=== PATIENT | female | born 1935 | race African-American/Black ===

== ENCOUNTER → 2018-09-23 | Emergency (ER) | payer MEDICARE, OTHER ==
[~2018-09-23] VITALS: Ht 160 cm; Wt 69.0 kg
[~2018-09-23] MED LIST: ADULT LOW DOSE81 MG; ANTIFUNGAL30 GM TP; BACTROBAN CREAM30 G1 TOP; CARVEDILOL; CARVEDILOL6.25 MG; FAMOTIDINE 20 M20 MG; GABAPENTIN100 MG; GLUCOPHAGE500 MG; GLUCOTROL5 MG; HYDROCODONE-AP1 EAC6 PO; KEFLEX500 MG PO; LATANOPROST 0.2.5 ML; LIPITOR40 MG; LISINOPRIL10 MG; LOMOTIL TABLET1 EACH; NITROGLYCERIN0.4 MG; NORCO 5-325 TA1 EACH PO; PLAVIX 75 MG TA75 M1; TRENTAL; ZOLOFT 50 MG TA50 MG
[2018-09-24 00:45] VITALS: BP 176/43
== END ==
LOC: M.ERS 23:02
DX: R04.0 Epistaxis (principal); I10 Essential (primary) hypertension; E11.40 Type 2 diabetes mellitus with diabetic neuropathy, unspecified; E78.00 Pure hypercholesterolemia, unspecified

== ENCOUNTER 2020-02-06 16:30 | Inpatient (IN) | payer MEDICARE, OTHER ==
[~2020-02-06] VITALS: Ht 160 cm; Wt 65.8 kg
[~2020-02-06 16:30] MED LIST changes: -ADULT LOW DOSE81 MG; +ADULT LOW DOSE81 MG PO; -GABAPENTIN100 MG; +GABAPENTIN100 MG PO; -LIPITOR40 MG; +LIPITOR40 MG PO; -ZOLOFT 50 MG TA50 MG; +ZOLOFT 50 MG TA50 MG PO
[2020-02-06 17:36] LABS: URINE BILIRUBIN NEGATIVE (Negative); URINE BLOOD TRACE (Negative); URINE CLARITY CLEAR; URINE COLOR YELLOW; URINE GLUCOSE-RANDOM TRACE (Negative); URINE KETONES NEGATIVE (Negative); URINE LEUKOCYTES-REFLEX NEGATIVE (Negative); URINE NITRITE-REFLEX NEGATIVE (Negative); URINE PROTEIN 2+ (Negative); URINE SPECIFIC GRAVITY 1.015 (1.005-1.030); URINE UROBILINOGEN 0.2 E.U./dl (0.2-1.0)
[2020-02-06 17:43] LABS: BACTERIA-REFLEX None Seen /HPF (None Seen); CASTS None Seen /LPF (None Seen); CRYSTALS None Seen /LPF (None Seen); MUCUS 0-3 Light strn/LPF (None Seen); SQUAMOUS 4-10 Moderate /LPF (0-3); URINE RBC 3-10 Few /HPF (0-2); URINE WBC-REFLEX None Seen /HPF (0-5)
[2020-02-06 17:53] LABS: ABSOLUTE EOSINOPHILS 0.1 thou/uL (0.0-0.7); ABSOLUTE MONOCYTES 0.3 thou/uL (0.0-1.2); ABSOLUTE NEUTROPHILS 3.5 thou/uL (1.6-8.1); BASOPHILS 0.5 %; EOSINOPHILS 1.2 %; HEMATOCRIT 26.1 % (37.0-47.0); HEMOGLOBIN 8.7 gm/dL (12.0-15.0); LYMPHOCYTES 19.9 %; MCH 31.6 pg (26.0-34.0); MCHC 33.3 g/dL (28.0-37.0); MONOCYTES 6.6 %; MPV 8.5 fl. (7.2-11.1); NUCLEATED RBCS 0 /100WBC; PLATELET COUNT* 105 thou/uL (150-400); POLYS 71.8 %; RBC 2.75 mil/uL (4.20-5.00); RDW-CV 13.7 % (10.5-14.5); WBC 4.9 thou/uL (4.0-11.0)
[2020-02-06 18:01] VITALS: BP 137/58
[2020-02-06 18:08] LABS: APTT 27.3 Seconds (25.0-31.3); INR 1.3; PROTIME 13.2 Seconds (9.20-11.50)
[2020-02-06 18:16] LABS: ALBUMIN 2.1 g/dL (3.4-5.0); CK-MB MASS 1.3 ng/mL (<0.5-3.6); CREATININE 1.3 mg/dL (0.6-1.3); MAGNESIUM 1.3 mg/dL (1.8-2.4); TOTAL BILIRUBIN 0.3 mg/dL (<0.1-1.0); TOTAL PROTEIN 4.2 g/dL (6.4-8.2)
[2020-02-06 18:18] LABS: CALCIUM 5.6 mg/dL (8.5-10.1); POTASSIUM 6.5 mmol/L (3.5-5.1)
[2020-02-06 20:01] VITALS: BP 156/83
[2020-02-06 21:00] VITALS: BP 206/77
[2020-02-06 21:15] LABS: CREATININE 1.4 mg/dL (0.6-1.3)
[2020-02-06 21:16] LABS: CALCIUM 7.8 mg/dL (8.5-10.1)
[2020-02-06 21:19] LABS: POTASSIUM 6.3 mmol/L (3.5-5.1)
[2020-02-06 21:19] LABS: BE -7.2 mmol/L (-2 to +3); PO2 VENOUS 56.7 mmHg (35.0-45.0)
[2020-02-06 21:31] VITALS: BP 218/74
[2020-02-06 22:01] VITALS: BP 201/61
[2020-02-06 23:01] VITALS: BP 181/52
[2020-02-07] VITALS (74 sets, daily range): BP systolic 106–223; BP diastolic 36–105
[2020-02-07 01:26] LABS: HEMATOCRIT 39.5 % (37.0-47.0); MCH 31.4 pg (26.0-34.0); MPV 8.8 fl. (7.2-11.1); RBC 4.16 mil/uL (4.20-5.00); RDW-CV 13.7 % (10.5-14.5); WBC 9.6 thou/uL (4.0-11.0)
[2020-02-07 01:27] LABS: HEMOGLOBIN 13.1 gm/dL (12.0-15.0)
[2020-02-07 01:33] LABS: CALCIUM 7.7 mg/dL (8.5-10.1); CREATININE 1.4 mg/dL (0.6-1.3)
[2020-02-07 01:42] LABS: ALBUMIN 3.1 g/dL (3.4-5.0); MAGNESIUM 1.6 mg/dL (1.8-2.4); TOTAL BILIRUBIN 0.3 mg/dL (<0.1-1.0); TOTAL PROTEIN 7.1 g/dL (6.4-8.2); TROPONIN-I LEVEL 0.33 ng/mL (<0.06)
[2020-02-07 01:47] LABS: POTASSIUM 6.6 mmol/L (3.5-5.1)
--- NOTE | 2020-02-07 05:08 | NUR ---
PT WENT FROM BEING HYPOTHERMIC TO HYPERTHERMIC THROUGH THE NIGHT. STARTED ON HEPARIN GTT AND SEDATED ON PROPOFOL AND VERSED. PUPILS REACTIVE. PT SEEMS TO BE POSTURING EVERY 10-15 SECONDS FOR A FEW SECONDS AND RELAXES EXTREMITIES RIGHT AFTER. VENT SETTINGS UNCHANGED. PACER IN PLACE AND WORKING. PT HYPERTENSIVE THROUGH THE NIGHT, TREATMENT IN PLACE. OTHERWISE UNEVENTFUL NIGHT. Q2 TURNS FOR SKIN INTEGRITY. WILL CONTINUE MONITORING.
[2020-02-07 07:34] LABS: CALCIUM 7.8 mg/dL (8.5-10.1); CREATININE 1.5 mg/dL (0.6-1.3)
[2020-02-07 07:39] LABS: POTASSIUM 5.3 mmol/L (3.5-5.1)
[2020-02-07 07:50] LABS: ALBUMIN 3.3 g/dL (3.4-5.0); TOTAL BILIRUBIN 0.3 mg/dL (<0.1-1.0); TOTAL PROTEIN 6.5 g/dL (6.4-8.2)
[2020-02-07 07:52] LABS: HEMATOCRIT 36.9 % (37.0-47.0); HEMOGLOBIN 12.4 gm/dL (12.0-15.0); MCH 31.5 pg (26.0-34.0); MCHC 33.6 g/dL (28.0-37.0); MCV 93.7 fL (80.0-100.0); MPV 9.4 fl. (7.2-11.1); RBC 3.94 mil/uL (4.20-5.00); RDW-CV 13.8 % (10.5-14.5)
[2020-02-07 07:57] LABS: BE -5.6 mmol/L (-2 to +3); PCO2 VENOUS 58.1 mmHg (41.0-51.0); PO2 VENOUS 131.8 mmHg (35.0-45.0)
[2020-02-07 14:30] LABS: CALCIUM 7.4 mg/dL (8.5-10.1); CREATININE 1.1 mg/dL (0.6-1.3)
--- NOTE | 2020-02-07 18:57 | NUR ---
PT HAD CENTRAL LINE AND ART LINE PLACED TODAY RECEIVED CONSENT TOLERATED WELL
[2020-02-07 22:03] LABS: BE 2.3 mmol/L (-2 to +3); PCO2 36.1 mmHg (35.0-45.0); pH 7.472 (7.340-7.450)
[2020-02-07 22:05] LABS: PO2 173.9 mmHg (75.0-100.0)
[2020-02-08] VITALS (67 sets, daily range): BP systolic 97–217; BP diastolic 35–89
[2020-02-08 05:33] LABS: BE -0.9 mmol/L (-2 to +3); PCO2 32.8 mmHg (35.0-45.0); pH 7.451 (7.340-7.450)
[2020-02-08 05:34] LABS: HEMATOCRIT 32.9 % (37.0-47.0); HEMOGLOBIN 11.4 gm/dL (12.0-15.0); MCH 31.8 pg (26.0-34.0); MCHC 34.6 g/dL (28.0-37.0); MCV 91.7 fL (80.0-100.0); MPV 8.7 fl. (7.2-11.1); RBC 3.59 mil/uL (4.20-5.00); RDW-CV 13.8 % (10.5-14.5); WBC 8.6 thou/uL (4.0-11.0)
[2020-02-08 05:51] LABS: PO2 174.4 mmHg (75.0-100.0)
[2020-02-08 05:57] LABS: ALBUMIN 2.8 g/dL (3.4-5.0); CALCIUM 7.7 mg/dL (8.5-10.1); MAGNESIUM 1.2 mg/dL (1.8-2.4); POTASSIUM 3.3 mmol/L (3.5-5.1); TOTAL BILIRUBIN 0.4 mg/dL (<0.1-1.0); TOTAL PROTEIN 6.6 g/dL (6.4-8.2)
--- NOTE | 2020-02-08 08:08 | CON ---
[address] [address] CONSULTATION Name: DELFINO BROWN Room: [address] IN M.R.#: [id number] Admission: 02/06/20 Attend Phys: Maximo Maldonado MD Discharge: Date of : 37 Report #: [id number] THIS REPORT FOR: //name// cc: COURTNEY Bah family physician/PCP COURTNEY - Niurka family physician/PCP ~ THIS REPORT FOR: //name// CC: COURTNEY physician/PCP Maximo Maldonado DATE OF SERVICE: 02/07/2020 REASON FOR CONSULTATION: Obtained by Dr. Maldonado for acute kidney injury and hyperkalemia. HISTORY OF PRESENT ILLNESS: The patient is an 84-year-old female patient who was admitted to the hospital last night. She is seen in intensive care unit. She is intubated and sedated. No history is available from the patient. 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 EMS was called. Apparently, the patient was found to have very feeble pulses versus bradycardia. CPR was initiated, do not done for too long as the patient apparently had some apparent response after that. There has been no reported seizure-like activity. The patient required an oropharyngeal airway management on the way to the hospital and was subsequently intubated for airway protection given her low GCS. She required emergent transvenous pacemaker placement. Presently, she is being paced off and on, but for the rest of the rhythm, she does appear to have a normal sinus rhythm. She is sedated. Her blood pressure was high initially, but has subsequently been dropping all night. She was on propofol and Versed both of which have been backed off. She is only requiring 50% FiO2. She has made 1.3 liters of urine overnight. PAST MEDICAL HISTORY: Has been obtained only by review of the chart, there is mention of a complete heart block in the past. There is a mention of diabetes, hypertension, coronary artery disease with history of acute [place] and coronary artery bypass surgery in the past, history of neuropathy and dyslipidemia. PERSONAL, SOCIAL AND FAMILY HISTORY: Unavailable from the patient. History mentions the patient is a former smoker. HOME MEDICATIONS: From records, Lipitor, famotidine, gabapentin, lisinopril, sertraline, [place] [address] CONSULTATION Name: DELFINO BROWN Room: [address] IN [facility]#: [id number] Admission: 02/06/20 Attend Phys: Maximo Maldonado MD Discharge: Date of : 36 Report #: [id number] REVIEW OF SYSTEMS: Unobtainable from the patient. The nurses tell me she has been doing some invariable posturing of her arms every now and then. She is currently sedated, so mental status cannot be assessed appropriately. PHYSICAL EXAMINATION: VITAL SIGNS: She is intubated and sedated. She is on 50% FiO2. There is an ET tube in place. LUNGS: Diminished bilaterally. HEART: S1 and S2. ABDOMEN: Soft. EXTREMITIES: Show no edema. SKIN: Warm and dry. I do not see any obvious ulcers or infections on the skin to my visible exam. IMAGING STUDIES: Reviewed. Chest x-ray showed mild cardiomegaly, no evidence of infiltrate or fluid overload. CT of the head did not show any acute intracranial abnormalities. LABORATORY STUDIES: White count on admission was 4.9, hemoglobin 8.7, and platelets 105. Metabolic panel on admission, sodium 142, potassium 6.5, bicarbonate 16, BUN 19, and creatinine 1.3. AST 485, ALT 354. CK 93, CK-MB 1.3, and albumin 2.1. Potassium kept rising over the night with a potassium of 6.6 again this morning. AST and ALT continue to rise on most recent blood test from this morning. Overnight, she was given Veltassa and was given a bicarbonate drip. This morning, her labs show sodium is 143, potassium is 5.3, chloride 109, bicarbonate 25, BUN is 17, creatinine is 1.5, calcium 7.8, and glucose is 121. AST and ALT are pending. Urinalysis shows 2+ protein, trace blood with few rbc's 3-10 and squamous epithelial cells. ASSESSMENT: 1. Nonoliguric acute kidney injury, unclear what the patient's baseline creatinine. Admission creatinine was 1.3. Creatinine last checked in the system here in 2005 was 1.1. 2. Episode of unresponsiveness with complete heart block on admission and hyperkalemia. 3. The patient is presently intubated for airway protection because of low GCS. 4. Complete heart block, has a transvenous pacer in place. I am noticing that she is not requiring pacing regularly, which could be because of the correction of the hyperkalemia. 5. Metabolic acidosis, predominantly non-anion gap improving with bicarbonate administration. 6. Mild lactic acidosis. 7. History of diabetes. 8. History of coronary artery disease, status post coronary artery bypass graft. 9. [place] [address] CONSULTATION Name: DELFINO BROWN Room: [address] IN [facility]#: [id number] Admission: 02/06/20 Attend Phys: Maximo Maldonado MD Discharge: Date of : 36 Report #: [id number] PLAN: 1. Nonoliguric acute kidney injury, slow rise in the creatinine as anticipated after a recent of unresponsiveness and possibly cardiovascular compromise. 2. Her blood pressure is stable now. 3. She is making decent amount of urine. 4. Her potassium is improving. I will continue D5 half NS with 50 mEq of bicarbonate at 125 mL an hour. 5. Metabolic acidosis has improved. 6. Marked hypoalbuminemia. 7. Transaminitis, possibly from the hemodynamic compromise because of the episode of unresponsiveness and complete heart block, anticipate improvement with the volume resuscitation. 8. We will follow along closely. No other specific recommendations at this moment. 9. Management of respiratory status and altered mental status as per primary and pulmonary team service recommendations. 10. The patient is critically sick and was seen in the intensive care unit. I spent 40 minutes with the patient, reviewing the chart, reviewing records, examining the patient, discussion with nursing staff and documentation. <ELECTRONICALLY SIGNED> By: Mickey Wu MD 02/08/20 0808 0746 [id number] Wu MD /nt
--- NOTE | 2020-02-08 13:57 | EKG ---
[place] [address] ELECTROCARDIOGRAM REPORT Name: DELFINO BROWN Room: [address] ADM IN .R.#: [id number] Admission: 02/06/20 Attend Phys: Maximo Maldonado, Discharge: Date of : 37 Date of Service: 02/06/20 1628 Report #: [id number] THIS REPORT FOR: //name// [facility] ED Test Date: 2020-02-06 Test Time: 16:28:53 Pat Name: DELFINO BROWN Department: Room: [facility] Gender: F [employer] In[employer] Servicer: : 1935 Requested By: Tom Edward Order Number: [id number] MD: Sudhir Rossi Measurements Intervals [place] Rate: 18 P: -81 TN: 128 QRS: 103 QRSD: 127 T: QT: 606 QTc: 332 Interpretive Statements Complete heart block with ventricular escape No previous ECG available for comparison Electronically Signed On 02-08-2020 13:57:14 CDT by Sudhir Rossi [email or web address] <ELECTRONICALLY SIGNED> By: Sudhir Rossi MD, [facility] 02/08/20 1357 1628 1628 Sudhir Rossi MD, [facility] /EPI
--- NOTE | 2020-02-08 18:42 | NUR ---
pt progressed toward goals temp pacemaker taken out per dr tran still intubated and sedated possible weaning trial tomorrow per blayne blood pressure still htn but after increasing dosage of medication b/p is more therapeutic spouse at bedside throughout shift
[2020-02-08 22:06] LABS: HEPATITIS B SURFACE AG Negative (Negative)
[2020-02-09] VITALS (86 sets, daily range): BP systolic 102–175; BP diastolic 37–85
[2020-02-09 05:09] LABS: HEMATOCRIT 27.9 % (37.0-47.0); HEMOGLOBIN 9.5 gm/dL (12.0-15.0); MCH 31.4 pg (26.0-34.0); MCHC 33.9 g/dL (28.0-37.0); MCV 92.5 fL (80.0-100.0); MPV 8.6 fl. (7.2-11.1); RBC 3.02 mil/uL (4.20-5.00); RDW-CV 13.7 % (10.5-14.5); WBC 7.5 thou/uL (4.0-11.0)
[2020-02-09 05:56] LABS: CALCIUM 7.5 mg/dL (8.5-10.1); CREATININE 0.9 mg/dL (0.6-1.3); MAGNESIUM 1.4 mg/dL (1.8-2.4)
[2020-02-09 06:01] LABS: POTASSIUM 2.9 mmol/L (3.5-5.1)
--- NOTE | 2020-02-09 07:55 | NUR ---
PATIENT REMAINS INTUBATED ON VENTILATOR WITH MINIMAL SUPPORT. AROUND 2129, BP DROPPED 90 POINTS SYSTOLIC PER ART LINE, CUFF READING MATCHED. BP SLOWLY RETURNED TO BASELINE, CT OF HEAD W/O CONTRAST DONE LAST NIGHT. NO ABNORMAL RESULTS RETURNED ON CT READING. POTASSIUM RETURNED CRITICALLY LOW THIS AM AMIDST HEART RATE AND RHYTHM BECOMING INCREASINGLY UNSTABLE. POTASSIUM AND MAGNESIUM INFUSING. METOPROLOL GIVEN PER DR. LUTHER, HR RETURNED TO BASELINE SINUS TACH LOW 100'S. BP REMAINING STABLE. OG REPLACED THIS SHIFT. PATIENT ABLE TO WAKE UP OVER DECREASING SEDATION, DOES NOT FOLLOW COMMANDS BUT WILL RESPOND TO NOXIOUS STIMULI APPROPRIATELY. PACEMAKER REMAINS OUT.
--- NOTE | 2020-02-09 12:58 | 2DMMODE ---
[place] [address] 2 D/M-MODE ECHOCARDIOGRAM Name: DELFINO BROWN Room: [address] IN [facility]#: [id number] Admission: 02/06/20 Attend Phys: Maximo Maldonado, Discharge: Date of : 37 Date of Service: 02/09/20 1257 Report #: [id number] THIS REPORT FOR: cc: FAM - No family physician/PCP FAM - No family physician/PCP Leonidas Coronado MD [facility] ~ APPROVED REPORT Study performed: 02/09/2020 10:11:28 EXAM: Comprehensive 2D, Doppler, and color-flow Echocardiogram Patient Location: In-Patient Room #: 004 Status: routine BSA: 1.69 HR: 103 bpm BP: 142/53 mmHg Rhythm: NSR Other Information Study Quality: Good Indications Arrhythmia 2D Dimensions IVSd: 11.40 (7-11mm) LVOT Diam: 19.01 (18-24mm) LVDd: 44.17 mm PWd: 9.96 (7-11mm) Ascending Ao: 27.90 (22-36mm) LVDs: 30.79 (25-40mm) Aortic Root: 31.65 mm Volumes Left Atrial Volume (Systole) LA ESV Index: 17.30 mL/m2 Aortic Valve AoV Peak Keshawn.: 1.35 m/s AO Peak Gr.: 7.28 mmHg LVOT Max P.41 mmHg AO Mean Gr.: 4.24 mmHg LVOT Mean P.63 mmHg LVOT Max V: 0.92 m/s AO V2 VTI: 24.45 cm LVOT Mean V: 0.58 m/s CRISTIAN (VTI): 2.15 cm2 LVOT V1 VTI: 18.53 [place] [address] 2 D/M-MODE ECHOCARDIOGRAM Name: DELFINO BROWN Room: [address] IN ..#: [id number] Admission: 02/06/20 Attend Phys: Maximo Maldonado, Discharge: Date of : 36 Date of Service: 02/09/20 1257 Report #: [id number] Mitral Valve E/A Ratio: 0.92 MV Decel. Time: 63.02 ms MV E Max Keshawn.: 1.29 m/s MV PHT: 18.27 ms MVA (PHT): 12.04 cm2 TDI E/Lateral E': 16.13 E/Medial E': 16.13 Medial E' Keshawn.: 0.08 m/s Lateral E' Keshawn.: 0.08 m/s Pulmonary Valve PV Peak Keshawn.: 1.46 m/s PV Peak Gr.: 8.57 mmHg Tricuspid Valve RAP Estimate: 5.00 mmHg TR Peak Gr.: 30.34 mmHg RVSP: 35.00 mmHg PA Pressure: 35.00 mmHg Left Ventricle The left ventricle is normal size. There is normal LV segmental wall motion. There is normal left ventricular wall thickness. Left ventricular systolic function is normal. The left ventricular ejection fraction is within the normal range. LVEF is 60-65%. Grade I - abnormal relaxation pattern. Right Ventricle The right ventricle is normal size. The right ventricular systolic function is normal. Atria Left atrium is moderately dilated. The right atrium size is normal. Aortic Valve Mild aortic valve sclerosis. No aortic regurgitation is present. There is no aortic valvular stenosis. Mitral Valve Mild mitral annular calcification. Mild mitral regurgitation. No evidence of mitral valve stenosis. Tricuspid Valve The tricuspid valve is normal in structure. Mild tricuspid regurgitation. [place] [address] 2 D/M-MODE ECHOCARDIOGRAM Name: DELFINO BROWN Room: [address] IN [facility]#: [id number] Admission: 02/06/20 Attend Phys: Maximo Maldonado, Discharge: Date of : 37 Date of Service: 02/09/20 1257 Report #: [id number] Pulmonic Valve The pulmonary valve is normal in structure. There is no pulmonic valvular regurgitation. Great Vessels The aortic root is normal in size. IVC is normal in size and collapses >50% with inspiration. Pericardium There is no pericardial effusion. <Conclusion> The left ventricle is normal size. There is normal left ventricular wall thickness. Left ventricular systolic function is normal. The left ventricular ejection fraction is within the normal range. LVEF is 60-65%. Grade I - abnormal relaxation pattern. The right ventricle is normal size. Left atrium is moderately dilated. The right atrium size is normal. Mild aortic valve sclerosis. No aortic regurgitation is present. There is no aortic valvular stenosis. Mild mitral annular calcification. Mild mitral regurgitation. The tricuspid valve is normal in structure. Mild tricuspid regurgitation. Mild pulmonary hypertension. IVC is normal in size and collapses >50% with inspiration. There is no pericardial effusion. There is normal LV segmental wall motion. <ELECTRONICALLY SIGNED> By: Leonidas Coronado MD, FACC 02/09/20 1257 1257 1257 Leonidas Coronado MD, FACC /INF
--- NOTE | 2020-02-09 15:37 | NUR ---
ICU rounds: Covid pending. Pt failed weaning trial today, will reattempt tomorrow. CM spoke with via phone. Pt is A&O, normally active and independent. No DME. No hx of HH or SNF, wants to use [facility] [place]. Following [facility] p:[phone] f:[phone]
[2020-02-09 17:18] LABS: MAGNESIUM 2.1 mg/dL (1.8-2.4); POTASSIUM 3.7 mmol/L (3.5-5.1)
--- NOTE | 2020-02-09 18:29 | NUR ---
PT REMAINS INTUBATED PER ORDERED SETTINGS.DURING WEANING TRIAL THIS AM PT HAD A RUN OF SVT SO TRIAL WAS STOPPED.SEDATED ON PROPOFOL PER TITRATION PROTOCOL.POTASSIUM/MAGNESIUM REPLACED.ECHO COMPLETED.ISOLATION MAINTAINED FOR PENDING COVID.PT HAD TEMP MAX OF 101.5-TYLENOL GIVEN.FALL PRECAUTIONS IN PLACE.WILL CONTINUE TO MONITOR FOR DURATION OF SHIFT.
[2020-02-10] VITALS (50 sets, daily range): BP systolic 88–166; BP diastolic 30–58
--- NOTE | 2020-02-10 05:13 | NUR ---
VITALS STABLE, LOW GRADE FEVER. REMAINS ON 50MCG/KG/MIN OF PROPOFOL, UNABLE TO DOWN TITRATE. SINUS TACH WITH PVCs THROUGH THE NIGHT, DID NOT HAVE EPISODES OF IRREGULAR RHYTHMS. RECEIVED FULL BATH, HAIR SHAMPOO. Q2 TURNS FOR SKIN INTEGRITY. WILL CONTINUE MONITORING.
[2020-02-10 05:54] LABS: ABSOLUTE EOSINOPHILS 0.2 thou/uL (0.0-0.7); ABSOLUTE LYMPHOCYTES 0.8 thou/uL (0.8-5.3); ABSOLUTE MONOCYTES 0.5 thou/uL (0.0-1.2); ABSOLUTE NEUTROPHILS 4.2 thou/uL (1.6-8.1); BASOPHILS 0.8 %; EOSINOPHILS 3.6 %; HEMATOCRIT 25.3 % (37.0-47.0); HEMOGLOBIN 8.7 gm/dL (12.0-15.0); LYMPHOCYTES 13.9 %; MCH 31.7 pg (26.0-34.0); MCHC 34.5 g/dL (28.0-37.0); MCV 91.9 fL (80.0-100.0); MONOCYTES 8.3 %; MPV 8.7 fl. (7.2-11.1); NUCLEATED RBCS 0 /100WBC; PLATELET COUNT* 97 thou/uL (150-400); POLYS 73.4 %; RBC 2.75 mil/uL (4.20-5.00); RDW-CV 13.6 % (10.5-14.5); WBC 5.8 thou/uL (4.0-11.0)
[2020-02-10 06:07] LABS: ALBUMIN 2.6 g/dL (3.4-5.0); CALCIUM 7.3 mg/dL (8.5-10.1); CREATININE 0.7 mg/dL (0.6-1.3); MAGNESIUM 1.8 mg/dL (1.8-2.4); POTASSIUM 3.4 mmol/L (3.5-5.1); TOTAL BILIRUBIN 0.5 mg/dL (<0.1-1.0)
[2020-02-10 06:12] LABS: PHOSPHORUS* 3.9 mg/dL (2.5-4.9)
--- NOTE | 2020-02-10 14:55 | NUR ---
ICU rounds: Covid pending. Intubated. Pt has montanez in place. Central Line. On levo gtt, pressures not maintaining.
[2020-02-10 15:11] LABS: ABSOLUTE BASOPHILS 0.1 thou/uL (0.0-0.2); ABSOLUTE EOSINOPHILS 0.3 thou/uL (0.0-0.7); ABSOLUTE LYMPHOCYTES 0.8 thou/uL (0.8-5.3); ABSOLUTE MONOCYTES 0.6 thou/uL (0.0-1.2); ABSOLUTE NEUTROPHILS 4.7 thou/uL (1.6-8.1); BASOPHILS 0.9 %; HEMOGLOBIN 8.2 gm/dL (12.0-15.0); LYMPHOCYTES 12.1 %; MCH 31.6 pg (26.0-34.0); MCHC 34.1 g/dL (28.0-37.0); MCV 92.8 fL (80.0-100.0); MONOCYTES 9.9 %; MPV 9.4 fl. (7.2-11.1); NUCLEATED RBCS 0 /100WBC; PLATELET COUNT* 101 thou/uL (150-400); POLYS 72.1 %; RBC 2.59 mil/uL (4.20-5.00); RDW-CV 13.6 % (10.5-14.5); WBC 6.5 thou/uL (4.0-11.0)
[2020-02-10 15:34] LABS: CALCIUM 7.6 mg/dL (8.5-10.1); CREATININE 0.8 mg/dL (0.6-1.3); MAGNESIUM 2.3 mg/dL (1.8-2.4); POTASSIUM 4.3 mmol/L (3.5-5.1)
--- NOTE | 2020-02-10 18:28 | NUR ---
PT PROGRESSED TOWAR GOALS ABLE TO OPEN EYES FOLLOW COMMANDS BY SQUEEZING HANDS ONLY PT B/P SOFT AND UNABLE TO KEEP SEDATED LEVO GTT AMD PRECEDEX STARTED AT 1555 DR PAUL ROCHA LEVO AND PROPOFOL GTT PRECEDEX MAXED AT 1.4 WITH FENTANYL PUSHES PT DOES BECOME RESTLESS AT TIMES DR MILLER D/C ALL SCHEDULED B/P MEDS TRIAL PLANNED FOR TOMORROW
[2020-02-11] VITALS (38 sets, daily range): BP systolic 117–164; BP diastolic 46–85
[2020-02-11 05:21] LABS: ABSOLUTE EOSINOPHILS 0.3 thou/uL (0.0-0.7); ABSOLUTE LYMPHOCYTES 0.7 thou/uL (0.8-5.3); ABSOLUTE MONOCYTES 0.4 thou/uL (0.0-1.2); ABSOLUTE NEUTROPHILS 2.8 thou/uL (1.6-8.1); BASOPHILS 0.9 %; EOSINOPHILS 8.1 %; HEMOGLOBIN 8.5 gm/dL (12.0-15.0); LYMPHOCYTES 16.4 %; MCH 31.2 pg (26.0-34.0); MCHC 34.2 g/dL (28.0-37.0); MCV 91.4 fL (80.0-100.0); MONOCYTES 9.4 %; MPV 8.6 fl. (7.2-11.1); NUCLEATED RBCS 0 /100WBC; PLATELET COUNT* 96 thou/uL (150-400); POLYS 65.2 %; RBC 2.73 mil/uL (4.20-5.00); RDW-CV 13.2 % (10.5-14.5); WBC 4.2 thou/uL (4.0-11.0)
[2020-02-11 05:46] LABS: ALBUMIN 2.3 g/dL (3.4-5.0); CALCIUM 7.7 mg/dL (8.5-10.1); CREATININE 0.7 mg/dL (0.6-1.3); MAGNESIUM 2.1 mg/dL (1.8-2.4); POTASSIUM 4.1 mmol/L (3.5-5.1); TOTAL BILIRUBIN 0.5 mg/dL (<0.1-1.0); TOTAL PROTEIN 5.9 g/dL (6.4-8.2)
--- NOTE | 2020-02-11 12:08 | CON ---
[address] [address] CONSULTATION Name: DELFINO BROWN Room: [address] ADM IN .R.#: [id number] Admission: 02/06/20 Attend Phys: Maximo Maldonado MD Discharge: Date of : 37 Report #: [id number] THIS REPORT FOR: //name// cc: COURTNEY Bah family physician/PCP COURTNEY - No family physician/PCP ~ THIS REPORT FOR: //name// CC: COURTNEY physician/PCP Maximo Maldonado DATE OF SERVICE: 02/09/2020 HISTORY OF PRESENT ILLNESS: This is an 84-year-old male female patient who is unable to provide any history at all. The history is only from the records. She was admitted with bradycardia and Cardiology is managing her. Presently, she is on sedation and intubated. It is not possible to do any further history or examination in this patient. REVIEW OF SYSTEMS: Only from the records and it looks like the patient has a history of Alzheimer's disease. She has a history of diabetes and coronary artery disease. She was admitted with bradycardia. Records indicate that the attempt will be made to wean off the patient of the event today. Record indicates she has a history of epistaxis, CA, hypertension, neuropathy, and high cholesterol. I need to talk to the family to get some more history. PAST MEDICAL HISTORY: Unavailable in this patient. FAMILY HISTORY: Unavailable. SOCIAL HISTORY: I am not sure what kind of social arrangements and we need to talk to the family. PHYSICAL EXAMINATION: Pretty limited. She does have minor movements in both upper extremities. I did not see any major movements. She did not respond that much to the pain. She does shut her eyes when I tried to do the eye examination, I cannot tell about plantars. Reflexes appeared to be diminished, but she does not take appropriate postures. She is intubated. Blood pressure is 136/52, respirations 15, pulse is 100, and she was running some temperature. She had two CT scans of the head, which were reviewed and they do not appear to be showing any acute abnormality. LABORATORY DATA: Indicate that this showed hemoglobin of 7.5. She has potassium of 2.9. when she came in, her potassium was high. Renal is following this patient [place] [address] CONSULTATION Name: DELFINO BROWN Room: [address] IN [facility].#: [id number] Admission: 02/06/20 Attend Phys: Maximo Maldonado MD Discharge: Date of : 37 Report #: [id number] IMPRESSION: This patient is being evaluated for hypoxic encephalopathy. We will do the further workup once the patient is stable. The main thing will be to look at her once the sedation is taken off, which will hopefully be today after the extubation if extubation can be accomplished. We will follow up this patient with you. Thank you very much for this referral. <ELECTRONICALLY SIGNED> By: Ismael Cha MD 02/11/20 1208 0954 1001Psocorro Cha MD /nt
[2020-02-11 14:08] LABS: CALCIUM 7.8 mg/dL (8.5-10.1); CREATININE 0.7 mg/dL (0.6-1.3); POTASSIUM 3.5 mmol/L (3.5-5.1)
--- NOTE | 2020-02-11 16:04 | NUR ---
ICU rounds: Pt extubated today, in room at bedside. Plan home with [facility] [place].
--- NOTE | 2020-02-11 17:27 | NUR ---
PT WAS EXTUBATED AT 1340 TOLERATING WELL AT FIRST THEN BECAME CONFUSED AND AGITATED PRN ATIVAN GIVEN TO HELP WITH AGITATION PER DR MILLER TOLERATING WELL RESTING IN BED TUBE FEED DC ARTLINE REMOVED PRESSURE HELD [id number] SITE INTACT AND DRY AT BED SIDE THIS NURSE EXPLAINED IT IS COMMON TO BE CONFUSED AFTER EXTUBATION
[2020-02-12] VITALS (26 sets, daily range): BP systolic 105–167; BP diastolic 38–78
[2020-02-12 03:50] LABS: ABSOLUTE EOSINOPHILS 0.3 thou/uL (0.0-0.7); ABSOLUTE LYMPHOCYTES 0.7 thou/uL (0.8-5.3); ABSOLUTE MONOCYTES 0.5 thou/uL (0.0-1.2); ABSOLUTE NEUTROPHILS 2.3 thou/uL (1.6-8.1); BASOPHILS 0.5 %; EOSINOPHILS 8.4 %; HEMATOCRIT 24.6 % (37.0-47.0); HEMOGLOBIN 8.4 gm/dL (12.0-15.0); LYMPHOCYTES 18.6 %; MCH 31.1 pg (26.0-34.0); MCHC 34.2 g/dL (28.0-37.0); MCV 91.1 fL (80.0-100.0); NUCLEATED RBCS 0 /100WBC; PLATELET COUNT* 113 thou/uL (150-400); POLYS 59.5 %; RBC 2.71 mil/uL (4.20-5.00); RDW-CV 12.8 % (10.5-14.5); WBC 3.9 thou/uL (4.0-11.0)
[2020-02-12 03:58] LABS: CALCIUM 7.9 mg/dL (8.5-10.1); MAGNESIUM 1.6 mg/dL (1.8-2.4); POTASSIUM 3.5 mmol/L (3.5-5.1)
--- NOTE | 2020-02-12 06:04 | NUR ---
DIFFICULT TO ASSESS NEUROLOGICAL STATUS, PT DOES NOT RESPOND TO ASSESSMENT QUESTIONS OR FOLLOW COMMANDS. ANXIOUS AT TIMES, MOANS AND TRIES TO CLIMB OUT OF BED. REMAINS ON PRECEDEX AT 0.7MCG/KG/HR WITH ATIVAN PUSHES. NO BM, UOP 700CC. PLACED ON 2L O2 PER NC. AFEBRILE. OTHERWISE UNEVENTFUL NIGHT. WILL CONTINUE MONITORING.
--- NOTE | 2020-02-12 09:10 | NUR ---
0900 BEDSIDE SWALLOW FAILED-PATIENT FOLLOWED COMMAND TO SWALLOW BUT WOULD ALLOW PUDDING OR WATER TO POOL IN THE FRONT OF HER MOUTH. WILL PLACE NPO UNTIL SPEECH THERAPY CAN SEE THE PATIENT
--- NOTE | 2020-02-12 13:58 | NUR ---
ICU rounds: Pt off precedex, moaning, relestless and delirious.
--- NOTE | 2020-02-12 18:45 | NUR ---
ASSESSMENT CHARTED. VSS THROUGHOUT SHIFT. PATIENT DID BECOME TACHYCARDIC WHEN AGITATED THIS AFTERNOON. MD NOTIFIED AND ORDER RECEIVED FOR IV HALDOL Q4H. PRECEDEX AND ATIVAN DC'D THIS MORNING. PATIENT IS FOLLOWING SIMPLE COMMANDS BUT STILL CONTINUES TO BE VERY RESTLESS. 1X DOSE OF TYLENOL GIVEN FOR FEVER. PATIENT DOES NOT COMPLAIN OF ANY PAIN WHEN ASKED. NO OTHER EVENTS DURING THIS SHIFT.
[2020-02-13] VITALS (18 sets, daily range): BP systolic 143–183; BP diastolic 43–68
[2020-02-13 05:43] LABS: ABSOLUTE EOSINOPHILS 0.3 thou/uL (0.0-0.7); ABSOLUTE LYMPHOCYTES 0.8 thou/uL (0.8-5.3); ABSOLUTE MONOCYTES 0.7 thou/uL (0.0-1.2); ABSOLUTE NEUTROPHILS 3.1 thou/uL (1.6-8.1); BASOPHILS 0.6 %; EOSINOPHILS 6.1 %; HEMATOCRIT 25.1 % (37.0-47.0); HEMOGLOBIN 8.6 gm/dL (12.0-15.0); LYMPHOCYTES 15.9 %; MCH 31.1 pg (26.0-34.0); MCHC 34.3 g/dL (28.0-37.0); MCV 90.9 fL (80.0-100.0); MONOCYTES 13.5 %; MPV 8.7 fl. (7.2-11.1); NUCLEATED RBCS 0 /100WBC; PLATELET COUNT* 159 thou/uL (150-400); POLYS 63.9 %; RBC 2.75 mil/uL (4.20-5.00); RDW-CV 12.5 % (10.5-14.5); WBC 4.9 thou/uL (4.0-11.0)
--- NOTE | 2020-02-13 05:54 | NUR ---
PT. NOT PROGRESSING TOWARDS GOALS. ROOM AIR. PT. WAS ONLY ABLE TO SAY HELP AND PLEASE THIS SHIFT. DID NOT ANSWER ANY QUESTIONS TO THIS RN. OBRIEN CATHETER REMAINS IN PLACE. WILL CONTINUE TO MONITOR.
[2020-02-13 06:05] LABS: CALCIUM 7.7 mg/dL (8.5-10.1); CREATININE 0.7 mg/dL (0.6-1.3); MAGNESIUM 1.7 mg/dL (1.8-2.4)
[2020-02-13 09:17] LABS: URINE BLOOD TRACE (Negative); URINE CLARITY CLEAR; URINE COLOR YELLOW; URINE GLUCOSE-RANDOM NEGATIVE (Negative); URINE LEUKOCYTES-REFLEX NEGATIVE (Negative); URINE NITRITE-REFLEX NEGATIVE (Negative); URINE PROTEIN 1+ (Negative); URINE SPECIFIC GRAVITY >= 1.030 (1.005-1.030); URINE UROBILINOGEN 0.2 E.U./dl (0.2-1.0)
[2020-02-13 09:19] LABS: ICTOTEST (BILI CONFIRMATORY) Negative (Negative); URINE BILIRUBIN 2+ (Negative); URINE KETONES 3+ (Negative)
[2020-02-13 14:23] LABS: CALCIUM 8.2 mg/dL (8.5-10.1); CREATININE 0.9 mg/dL (0.6-1.3); POTASSIUM 3.8 mmol/L (3.5-5.1)
--- NOTE | 2020-02-13 15:01 | NUR ---
ICU rounds: More alert and less agitated today. Replacing K. On RA. Low grade temp overnight
--- NOTE | 2020-02-13 16:43 | NUR ---
PER SPEECH THERAPY RECS PATIENT TO REMAIN NPO.
--- NOTE | 2020-02-13 16:44 | NUR ---
ASSESSMENT CHARTED. VSS. PATIENT TO MOVE TO ROOM 203. REPORT GIVEN TO TELE NURSE.
--- NOTE | 2020-02-13 18:44 | NUR ---
Pt. admitted from ICU around 1700, aox1, vss, sr on tele. shift assessment of 02/13/20 1200 reviewed and agree with assessment. Pt. in bed, lethargic and in no apparent distress. call light and personal belongings placed within reach.
[2020-02-14] VITALS: BP 121/58
[2020-02-14 04:00] VITALS: BP 160/48
[2020-02-14 04:34] LABS: ABSOLUTE EOSINOPHILS 0.2 thou/uL (0.0-0.7); ABSOLUTE MONOCYTES 0.7 thou/uL (0.0-1.2); ABSOLUTE NEUTROPHILS 3.4 thou/uL (1.6-8.1); BASOPHILS 0.8 %; EOSINOPHILS 4.4 %; HEMATOCRIT 27.9 % (37.0-47.0); HEMOGLOBIN 9.7 gm/dL (12.0-15.0); LYMPHOCYTES 19.5 %; MCH 31.3 pg (26.0-34.0); MCHC 34.7 g/dL (28.0-37.0); MCV 90.1 fL (80.0-100.0); MONOCYTES 12.8 %; MPV 8.2 fl. (7.2-11.1); NUCLEATED RBCS 0 /100WBC; PLATELET COUNT* 198 thou/uL (150-400); POLYS 62.5 %; RDW-CV 12.8 % (10.5-14.5); WBC 5.4 thou/uL (4.0-11.0)
[2020-02-14 04:49] LABS: CALCIUM 8.1 mg/dL (8.5-10.1); MAGNESIUM 1.9 mg/dL (1.8-2.4); POTASSIUM 4.2 mmol/L (3.5-5.1)
[2020-02-14 08:00] VITALS: BP 151/67
[2020-02-14 13:07] VITALS: BP 164/56
[2020-02-14 16:53] VITALS: BP 119/67
--- NOTE | 2020-02-14 18:01 | NUR ---
Pt. aox1, more alert throughout the day, spoke to son on phonex2, updated him of pt. status. pt. visited by at bedside, pt. denies pain. diet advanced to purred, tolerated without difficulty, pt. meal setup and encouraged to eat. call light and personal belongings placed within reach. pt. in bed, watching tv at this time, in stable condition.
[2020-02-14 20:00] VITALS: BP 172/67
[2020-02-15] VITALS (7 sets, daily range): BP systolic 152–184; BP diastolic 49–79
--- NOTE | 2020-02-15 12:31 | NUR ---
Pt. aox2, vss, denies pain, pt. continues to be more alert and awake, up to chair by PT by pivot and assistx1, meal setup and encouraged to eat, tolerated without difficulty. call light and personal belongings placed within reach.
[2020-02-16 00:34] VITALS: BP 143/50
[2020-02-16 02:05] LABS: GLYCOHEMOGLOBIN (HGB A1C) 6.1 % (4.8-5.6)
[2020-02-16 04:00] VITALS: BP 144/42
[2020-02-16 04:38] LABS: HEMATOCRIT 27.4 % (37.0-47.0); HEMOGLOBIN 9.4 gm/dL (12.0-15.0); MCH 31.2 pg (26.0-34.0); MCHC 34.4 g/dL (28.0-37.0); MCV 90.7 fL (80.0-100.0); MPV 8.2 fl. (7.2-11.1); RBC 3.02 mil/uL (4.20-5.00); RDW-CV 12.6 % (10.5-14.5)
[2020-02-16 05:07] LABS: CALCIUM 8.2 mg/dL (8.5-10.1); CREATININE 1.1 mg/dL (0.6-1.3); MAGNESIUM 1.7 mg/dL (1.8-2.4); POTASSIUM 3.3 mmol/L (3.5-5.1)
[2020-02-16 08:30] VITALS: BP 139/56
--- NOTE | 2020-02-16 10:45 | NUR ---
PT IN BED THIS AM VERY POOR APPETITE DOES NOT LIKE THE DIET STATES SHE CAN EAT FINE PROBABLY NEEDS TO BE REEVAULATED THOUGH FOR ASPIRATION NO COUGHING NOTED DENIES PAIN OR DISCOMFORT UP SBA TO MIN ASSIST WITH WALKER AND GAITBELT ALERT AND ORIENTED FORGETFUL AT TIMES CALL LIGHT IN REACH UP IN CHAIR NOW
[2020-02-16 17:13] VITALS: BP 149/55
[2020-02-16 20:00] VITALS: BP 165/60
[2020-02-16 20:14] LABS: MAGNESIUM 1.8 mg/dL (1.8-2.4)
[2020-02-16 23:58] VITALS: BP 140/42
[2020-02-17 04:29] VITALS: BP 131/50
[2020-02-17 04:41] LABS: HEMATOCRIT 25.3 % (37.0-47.0); HEMOGLOBIN 8.9 gm/dL (12.0-15.0); MCH 31.8 pg (26.0-34.0); MCV 90.7 fL (80.0-100.0); MPV 8.1 fl. (7.2-11.1); RBC 2.79 mil/uL (4.20-5.00); WBC 5.7 thou/uL (4.0-11.0)
[2020-02-17 04:56] LABS: CALCIUM 8.1 mg/dL (8.5-10.1); CREATININE 1.1 mg/dL (0.6-1.3); POTASSIUM 4.2 mmol/L (3.5-5.1)
[2020-02-17 07:59] VITALS: BP 139/47
[2020-02-17 12:09] VITALS: BP 162/50
--- NOTE | 2020-02-17 12:56 | NUR ---
Rehab consult pending. OT eval ordered. Pt to have pacer today. Pt in agreement with POC of going to ARU at in, ARU liaison to initiate insurance auth post OT eval.
[2020-02-17 16:42] VITALS: BP 162/53
[2020-02-18] VITALS: BP 155/47
--- NOTE | 2020-02-18 02:23 | NUR ---
ASSUMED CARE OF PT AT 1900. PT IS ALERT AND ORIENTED TIMES 2-3. PT IS CONFUSED ABOUT DATE. NO COMPLAINTS OF PAIN. PTS ARM IS IN A SLING AND IMMOBILE. PT IS IN SINUS RYTHM ON THE TELEMETRY. PT IS RESTING COMFORTABLY IN BED. RESPIRATIONS ARE EVEN AND NONLABORED. WILL CONTINUE TO MONITOR PT.
[2020-02-18 04:00] VITALS: BP 161/56
[2020-02-18 08:00] VITALS: BP 174/56
[2020-02-18 08:10] LABS: URINE BILIRUBIN NEGATIVE (Negative); URINE BLOOD NEGATIVE (Negative); URINE CLARITY CLEAR; URINE COLOR YELLOW; URINE GLUCOSE-RANDOM NEGATIVE (Negative); URINE KETONES NEGATIVE (Negative); URINE LEUKOCYTES-REFLEX TRACE (Negative); URINE NITRITE-REFLEX NEGATIVE (Negative); URINE PROTEIN NEGATIVE (Negative); URINE UROBILINOGEN 0.2 E.U./dl (0.2-1.0)
[2020-02-18 08:16] LABS: BACTERIA-REFLEX 1-9 Few /HPF (None Seen); CASTS None Seen /LPF (None Seen); CRYSTALS None Seen /LPF (None Seen); MUCUS 0-3 Light strn/LPF (None Seen); SQUAMOUS 0-3 Few /LPF (0-3); URINE RBC 0-2 Rare /HPF (0-2); URINE WBC-REFLEX 0-5 Rare /HPF (0-5)
--- NOTE | 2020-02-18 11:09 | NUR ---
Pt medically stable to go to ARU today, pending OT eval. Updated rehab trainer.
[2020-02-18 12:18] VITALS: BP 143/62
--- NOTE | 2020-02-18 13:43 | EKG ---
[place] [address] ELECTROCARDIOGRAM REPORT Name: DELFINO BROWN Room: [address] ADM IN .R.#: [id number] Admission: 02/06/20 Attend Phys: Maximo Maldonado, Discharge: Date of : 37 Date of Service: 02/18/20 0854 Report #: [id number] THIS REPORT FOR: //name// [facility] Test Date: 2020-02-18 Test Time: 08:54:52 Pat Name: DELFINO STEPHANIE Department: Room: [address] Gender: F Train Driver: : 1935 Requested By: Sudhir Rossi Order Number: [id number] Shawna MD: Buck Larson Measurements Intervals [place] Rate: 85 P: 50 W[place]: 165 QRS: 54 QRSD: 127 T: 72 QT: 411 QTc: 489 Interpretive Statements Sinus rhythm LBBB Baseline wander in lead(s) I,III,aVL,V5,V6 Compared to ECG 02/06/2020 16:28:53 AV block, complete (third-degree) no longer present Electronically Signed On 02-18-2020 13:43:04 CDT by Buck Larson [email or web address] <ELECTRONICALLY SIGNED> By: Buck Larson MD, [facility] 02/18/20 1343 0854 0854 Buck Larson MD, [facility] /EPI
[2020-02-18 16:41] VITALS: BP 150/61
--- NOTE | 2020-02-18 17:39 | EKG ---
[place] [address] ELECTROCARDIOGRAM REPORT Name: DELFINO BROWN Room: [address] ADM IN .R.#: [id number] Admission: 02/06/20 Attend Phys: Maximo Maldonado, Discharge: Date of : 37 Date of Service: 02/18/20 0855 Report #: [id number] THIS REPORT FOR: //name// [facility] Test Date: 2020-02-18 Test Time: 08:55:40 Pat Name: DELFINO BROWN Department: Room: [address] Gender: F Customer Account Representative: : 1935 Requested By: Sudhir Rossi Order Number: [id number] Reading MD: Buck Larson Measurements Intervals [place] Rate: 86 P: 42 NM: 164 QRS: 53 QRSD: 129 T: 104 QT: 410 QTc: 491 Interpretive Statements Sinus rhythm left ventricular hypertrophy with repolarization changes occasional atrial and ventricular paced beats Compared to ECG 02/18/2020 08:54:52 paced beats noted Electronically Signed On 02-18-2020 17:38:56 CDT by Buck Larson [email or web address] <ELECTRONICALLY SIGNED> By: Buck Larson MD, [facility] 02/18/20 1738 0855 0855 Buck Larson MD, [facility] /EPI
--- NOTE | 2020-02-18 19:01 | NUR ---
PT ALERT AND ORIENTED X3 FORGETFUL WITH TIME DENIES ANY PAIN ASSIST X 1 WITH GAITBELT AND WALKER PLAN FOR REHAB TOMORROW SR ON THE MONITOR WITH PVCS AND TACHY AT TIMES CALL LIGHT IN REACH
[2020-02-18 20:00] VITALS: BP 157/56
[2020-02-19] VITALS: BP 136/58
[2020-02-19 04:00] VITALS: BP 147/49
--- NOTE | 2020-02-19 07:01 | NUR ---
ASSUMED CARE OF PT AFTER REPORT AT 1930. PT A&OX3. NOT ORIENTED TO TIME. FORGETFUL. VSS. PHYSICAL ASSESSMENT COMPLETED AND CHARTED. PT ON RA. PT TRACING ST/BBB/APACED ON TELE. PT DENIES ANY PAIN. PT ABLE TO SLEEP WELL ON BED. CALL LIGHT WITHIN REACH.
[2020-02-19 08:00] VITALS: BP 127/52
[2020-02-19] MEDS ORDERED: LISINOPRIL10 MG PO (10:18)
[2020-02-19] MEDS ORDERED: PROTONIX IV40 MG PO (10:18)
--- NOTE | 2020-02-19 10:54 | NUR ---
Pt discharging to [facility] ARU today, faxed dc orders. CM updated Pt's . Plan to admit to room 328
[2020-02-19 12:04] VITALS: BP 133/55
--- NOTE | 2020-02-19 13:30 | NUR ---
PATIENT DISCHARGE TO REHAB RM 328 DISCHARGE INSTRUCTION GIVEN AND PRINTED PAPERS GIVEN IV AND HEART MONITOR REMOVED PERSONAL BELONGINGS RETURNED PATIENT SENT VIA BED AND REPORT GIVEN TO RN TRU FAMILY NOTIFIED
--- NOTE | 2020-02-19 14:34 | CARD ---
[address] [address] CARDIAC CATH REPORT Name: DELFINO BROWN Room: [address]#: [id number] Admission: 02/06/20 Attend Phys: Maximo Maldonado MD Discharge: 02/19/20 Date of : 37 Report #: [id number] THIS REPORT FOR: //name// cc: COURTNEY Cyr No family physician/PCP COURTNEY - No family physician/PCP ~ APPROVED REPORT Study performed: 02/17/2020 14:01:56 Patient Status: In-Patient Room #: 203 Exam: Insertion of Dual Chamber Permanent Pacemaker Indications: Sick Sinus Syndrome/Tachy Andriy Syndrome The patient is a 84 year-old female with a history of . Conscious Sedation Start time: 15:00 End Time: 15:47 Fentanyl 25 mcg Versed 1 mg Implanted Devices: Biotronik Edora 8 DRT, model #881103, serial #[id number] dual-chamber pulse generator. Biotronik Solia S 60, model #204059, serial #[id number] ventricular lead. Biotronik Solia S 53, model #378744, serial #[id number] atrial lead. Procedure The patient underwent informed consent. We discussed the details of the procedure including the risks, which include, but not limited to bleeding, infection, vascular damage, cardiac perforation, and pneumothorax. She understood these risks and was willing to proceed. As such, she was brought to the EP/Cardiac Catheterization laboratory in a fasting and sedated state and prepped and draped in a sterile fashion, received IV antibiotics prior to initiation of the procedure and a venogram was performed showing patency of the left axillary vein. The patient underwent conscious sedation, with no related complications. During this case, Fluoroscopy and visipaque 20cc were used for imaging. The left subclavian region was infiltrated with 2% Lidocaine subcutaneous anesthesia. A transverse incision was made in the left upper chest cavity. The subcutaneous pocket was formed via blunt dissection. Percutaneous venous access was achieved and [place] introdu[place] [address] CARDIAC CATH REPORT Name: DELFINO BROWN Room: [address]#: [id number] Admission: 02/06/20 Attend Phys: Maximo Maldonado MD Discharge: 02/19/20 Date of : 37 Report #: [id number] the left Subclavian vein. Sheaths were positions using the modified Seldinger technique Utilizing fluoroscopic guidance, the atrial and ventricular lead wires were advanced over the wires and positioned in the right atria and right ventricle respectively. Capturing and sensing thresholds were verified. Electrode Parameters P Wave: 2.0 mV R Wave: 8.0 mV Atrial Threshold: 1.0 V at 0.40 ms Ventricular Threshold: 0.4 V at 0.40 ms Atrial Resistance: 520 ohms Ventricular Resistance: 727 ohms Dual Chamber The atrial and ventricular leads were then secured using 0 silk sutures. The subcutaneous pocket was irrigated with ancef antibiotic solution.The atrial and ventricular leads were attached to the appropriate receptacles on the pulse generator and set screws firmly tightened to insure adequate contact and stability. Generator Change The generator change was then secured using 0 silk sutures. The subcutaneous pocket was irrigated with ancef antibiotic solution.The lead was attached to the appropriate receptacle on the new pulse generator and setscrews firmly tightened to insure adequate contact and stability. Complications The patient tolerated the procedure well and there were no complications associated with the procedure. Conclusion 1. Complete heart block with out of hospital arrest. 2. Successful placement of a dual-chamber pacemaker with atrial and ventricular lead placement. Recommendations 1. Follow-up site check in 1 week. 2. Follow-up device interrogation in 1 to 2 months. <ELECTRONICALLY SIGNED> By: Sudhir Rossi MD, FACC 02/19/20 1433 1433 1433[facility] Centerhaleigh Rossi MD, FACC /INF
== END 2020-02-19 13:30 | DRG 242 ==
LOC: M.ERS 16:30 → M.2W 17:02 → M.TBA-ER 17:02 → M.ICU 17:02 → M.2W 02-13 16:51
PROVIDERS: Family Medicine; Internal Medicine; Internal Medicine Critical Care Medicine; Internal Medicine Nephrology; Pediatrics; ADMIT Internal Medicine; ATTEND Internal Medicine
PROC: 03HY32Z Insertion of Monitoring Device into Upper Artery, Percutaneous Approach (ICD-10-PCS; principal; 2020-02-07)
PROC: 02HV33Z Insertion of Infusion Device into Superior Vena Cava, Percutaneous Approach (ICD-10-PCS; principal; 2020-02-07)
PROC: 0BH17EZ Insertion of Endotracheal Airway into Trachea, Via Natural or Artificial Opening (ICD-10-PCS; principal; 2020-02-07)
PROC: 5A1955Z Respiratory Ventilation, Greater than 96 Consecutive Hours (ICD-10-PCS; principal; 2020-02-07)
PROC: 0JH606Z Insertion of Pacemaker, Dual Chamber into Chest Subcutaneous Tissue and Fascia, Open Approach (ICD-10-PCS; 2020-02-17)
PROC: B51N1ZZ Fluoroscopy of Left Upper Extremity Veins using Low Osmolar Contrast (ICD-10-PCS; 2020-02-17)
PROC: 02H63JZ Insertion of Pacemaker Lead into Right Atrium, Percutaneous Approach (ICD-10-PCS; 2020-02-17)
PROC: 02HK3JZ Insertion of Pacemaker Lead into Right Ventricle, Percutaneous Approach (ICD-10-PCS; 2020-02-17)
DX: I44.2 Atrioventricular block, complete (principal); J96.01 Acute respiratory failure with hypoxia; I21.4 Non-ST elevation (NSTEMI) myocardial infarction; N17.0 Acute kidney failure with tubular necrosis; E43 Unspecified severe protein-calorie malnutrition; I46.9 Cardiac arrest, cause unspecified; J69.0 Pneumonitis due to inhalation of food and vomit; N18.6 End stage renal disease; G93.1 Anoxic brain damage, not elsewhere classified; E87.2 Acidosis; R65.10 Systemic inflammatory response syndrome (SIRS) of non-infectious origin without acute organ dysfunction; J98.11 Atelectasis; I50.32 Chronic diastolic (congestive) heart failure; I13.2 Hypertensive heart and chronic kidney disease with heart failure and with stage 5 chronic kidney disease, or end stage renal disease; E11.40 Type 2 diabetes mellitus with diabetic neuropathy, unspecified; E78.00 Pure hypercholesterolemia, unspecified; G30.9 Alzheimer's disease, unspecified; F02.80 Dementia in other diseases classified elsewhere, unspecified severity, without behavioral disturbance, psychotic disturbance, mood disturbance, and anxiety; I25.10 Atherosclerotic heart disease of native coronary artery without angina pectoris; E78.5 Hyperlipidemia, unspecified; R74.0 Nonspecific elevation of levels of transaminase and lactic acid dehydrogenase [LDH]; D64.9 Anemia, unspecified; E87.5 Hyperkalemia; K75.9 Inflammatory liver disease, unspecified; D69.6 Thrombocytopenia, unspecified; Z20.828 Contact with and (suspected) exposure to other viral communicable diseases; Z79.899 Other long term (current) drug therapy; I25.2 Old myocardial infarction; Z95.1 Presence of aortocoronary bypass graft; Z68.25 Body mass index [BMI] 25.0-25.9, adult

== ENCOUNTER 2020-02-19 10:24 | Inpatient (IN) | payer MEDICARE, OTHER ==
[~2020-02-19] VITALS: Ht 160 cm; Wt 55.8 kg
[~2020-02-19 10:24] MED LIST changes: +LISINOPRIL10 MG PO; +PROTONIX IV40 MG PO
[2020-02-19 13:30] VITALS: BP 127/56
--- NOTE | 2020-02-19 15:46 | NUR ---
1330 PATIENT ARRIVED TO ROOM 328 VIA BED FROM ROOM 203....REPORT REC'D FROM OWEN PATTERSON RN. PATIENT ORIENTED TO ROOM, AT BEDSIDE, CALLIGHT INPLACE. VSS 127/56 98.7/95/16/96% ON ROOM AIR. PATIENT WAS ADMITTED ON 02/06/20 IN COMPLETE HEART BLOCK AND RESP FAILURE, SEVERE HYPERKALEMIA AT 6.6, THEN DECREASED TO 2.9...SHE DEVELOPED ACUTE KIDNEY INJURY WHICH TRANSITIONED INTO ESRD. PATIENT IS ALERT AND PLEASANT, ORIENTED X 2-3. COULD NOT RECALL THE YEAR, OR DAY OF THE WEEK. PACEMAKER WAS IMPLANTED ON 02/17/2020, LEFT CLAVICLE INCISION IS C/D/I WITH STERI STRIPS INTACT, TRANSMITTER/RECORDER IS PLUGGED IN AND RESTING ON NIGHTSTAND NEXT TO HER BED. PATIENT AND HER ARE REQUESTING THAT HER RECORDS FROM THIS HOSPITALIZATION TO BE SENT TO HER JIRA DEVELOPER AND PCP IN [facility]. DR. BAILEY SOLOMON-JIRA DEVELOPER, DR. SARAH GOODEN-PCP.
[2020-02-19 20:21] VITALS: BP 150/58
[2020-02-20 04:51] LABS: HEMATOCRIT 29.3 % (37.0-47.0); HEMOGLOBIN 9.9 gm/dL (12.0-15.0); MCH 31.1 pg (26.0-34.0); MCHC 33.9 g/dL (28.0-37.0); MCV 91.8 fL (80.0-100.0); MPV 7.9 fl. (7.2-11.1); RBC 3.19 mil/uL (4.20-5.00); RDW-CV 13.2 % (10.5-14.5); WBC 7.5 thou/uL (4.0-11.0)
--- NOTE | 2020-02-20 05:05 | NUR ---
Assumed pt's care this pm shift. Pt alert and oriented. Forgetful. Pt was pleasant and cooperative at time of assessment. Pacemaker incision site C/D/I. Steri strips in place. Pt took meds whole. Prn ambien given per pt's request. Pt slept well this shift. Pt complaining this morning that her right index finger is sore. Nursing assessed and did not see any physical injury. Pt voiced that she may have laid on it. Denied pain med. Fall precaution in place. Will continue to monitor.
[2020-02-20 05:09] LABS: CALCIUM 8.4 mg/dL (8.5-10.1); CREATININE 1.2 mg/dL (0.6-1.3); POTASSIUM 3.7 mmol/L (3.5-5.1)
[2020-02-20 08:31] VITALS: BP 136/58
--- NOTE | 2020-02-20 13:36 | NUR ---
I have reviewed the documentation by EFRAÍN GARCIA from 02/20/20 to 02/20/20 and I concur with it. BAYLEE ASHFORD
--- NOTE | 2020-02-20 18:18 | NUR ---
ASSESSMENT COMPLETED DOCUMENTED THIS MORNING. PATIENT HAS BEEN UP AND PARTICIPATING WITH THERAPY TODAY. TOLERATING AND PROGRESSING WELL ON HER FIRST FULL DAY OF THERAPY. DENIES ANY PAIN AND NO CHANGES IN CONDITION NOTED. IN TO VISIT THIS AFTERNOON. APPETITE GOOD AND USING CALLIGHT TO ASK FOR ASSISTANCE TO THE BR.
[2020-02-21 04:02] LABS: ABSOLUTE EOSINOPHILS 0.2 thou/uL (0.0-0.7); ABSOLUTE LYMPHOCYTES 1.7 thou/uL (0.8-5.3); ABSOLUTE MONOCYTES 0.5 thou/uL (0.0-1.2); ABSOLUTE NEUTROPHILS 3.8 thou/uL (1.6-8.1); BASOPHILS 0.8 %; EOSINOPHILS 3.2 %; HEMATOCRIT 26.4 % (37.0-47.0); HEMOGLOBIN 9.1 gm/dL (12.0-15.0); LYMPHOCYTES 27.5 %; MCH 31.6 pg (26.0-34.0); MCHC 34.4 g/dL (28.0-37.0); MCV 91.8 fL (80.0-100.0); MONOCYTES 8.3 %; MPV 7.7 fl. (7.2-11.1); NUCLEATED RBCS 0 /100WBC; PLATELET COUNT* 295 thou/uL (150-400); POLYS 60.2 %; RBC 2.88 mil/uL (4.20-5.00); RDW-CV 13.4 % (10.5-14.5); WBC 6.2 thou/uL (4.0-11.0)
[2020-02-21 04:20] LABS: ALBUMIN 2.9 g/dL (3.4-5.0); CALCIUM 7.9 mg/dL (8.5-10.1); CREATININE 1.1 mg/dL (0.6-1.3); POTASSIUM 3.8 mmol/L (3.5-5.1); TOTAL BILIRUBIN 0.3 mg/dL (<0.1-1.0); TOTAL PROTEIN 6.4 g/dL (6.4-8.2)
--- NOTE | 2020-02-21 06:22 | NUR ---
Pt alert and oriented. VSS on RA. Meds given per emar. Prn ambien given per pt's request. pt voiced sleeping well this shift. Pt up with walker and gait belt on stb assist to the bathroom this shift. Fall precaution in place. Call light within reach. Hourly roundings made. Will continue to monitor.
[2020-02-21 08:00] VITALS: BP 113/43
--- NOTE | 2020-02-21 18:02 | NUR ---
ASSUMMED CARE OF PT AT 07, PT ALERT AND ORIENTED, PT TRANSFERS WITH ASSIST OF 1, AND GB, PER PHYSICAL THERAPY NURSING IS TO WALK PT WITHOUT WALKER AND MONITOR HOW SHE DOES, PHYSICIAN REQUESTED THAT FAMILY BRING IN PTS HOME DIABETIC MEDICATION, FAMILY INFORMED AND WILL BRING MEDICATION IN SUNDAY, PT DENIES PAIN, INCISION TO LEFT CHEST HEALING, UP IN CHAIR MOST OF SHIFT, PARTICIPATED IN ALL THERAPIES, HOURLY ROUNDING COMPLETED, ASSESSMENT COMPLETE, WILL CONTINUE TO MONITOR.
[2020-02-21 20:00] VITALS: BP 137/52
--- NOTE | 2020-02-22 05:38 | NUR ---
ASSUMED CARE AT 1920. ALERT AND ORIENTED. PLEASANT. DENIED ANY PAIN. PT ASKING ABOUT HOW TO BE D/C'D FROM REHAB. TOLD PT WOULD NEED TO DISCUSS WITH DOCTOR. MIN ASSIST WITH GAIT BELT. UP TO BR. SLEPT MOST OF THE NIGHT. CALL LIGHT IN REACH AND BED ALARM ON.
[2020-02-22 07:56] VITALS: BP 127/52
--- NOTE | 2020-02-22 16:13 | NUR ---
ASSUMMED CARE OF PT AT 729, PT ALERT AND ORIENTED,FORGETFUL, TRANSFERS WITH SBA AND GB, UP IN CHIAR ALL SHIFT, DENIES PAIN, TAKING FOOD AND FLUIDS WELL, ASKING WHEN SHE CAN GO HOME, HERE TO VISIT AND VERY UPSET, AT DESK ACCUSING NURSE THAT SHE IS NOT RECIEVING CORRECT MEDS, NURSE CALLED PTS PHARMACY TO VERIFY MEDS SHE WAS TAKING AT HOME AND INFORMED PT AND SHE WAS ON CORRECT MEDICATIONS AT HOSPITAL EXCEPT FOR HER DIABETIC MEDICATION THAT HE WAS TO BRING IN, HE BROUGHT A BOTTLE OF GABAPENTIN RATHER THAN JANUMET, NAME OF MEDICATION WRITTEN DOWN FOR AND ASKED TO BRING IN SUNDAY BUT STATED SHE WOULD BE GOING HOME TOMORROW SO HE DID NOT NEED TO BRING IN, EDUCATED PT AND THAT THERE WERE NO ORDERS FOR DISCHARGE AND SHE MAY NOT LEAVE TOMORROW, UPSET ASKING TO SPEAK WITH DRIER TRANSFER CAR OPERATOR AND PHYSICIAN, EXPLAINED HE COULD TALK WITH THEM TOMORROW, STATED HE WOULD DO THAT, SEEMS TO HAVE DIFFICULTY UNDERSTANDING WHY PT DID NOT GO HOME A FEW DAYS AGO, PT BATHED AT SINK AND DRESSED SELF WITH SBA, HOURLY ROUNDING COMPLETED, ASSESSMENT COMPLETE, WILL CONTINUE TO MONITOR.
[2020-02-22 20:30] VITALS: BP 155/53
--- NOTE | 2020-02-22 23:27 | NUR ---
ASSUMED CARE AT 2030. PATIENT ASSISTED TO BED BY Gisell CONDON RN. UP WITH GAIT BELT, NO DEVICE. TO BR TO VOID. TAKES PILLS WHOLE WITH WATER. INCISION TO PACER C/D/I, DONNA, WITH STERISTRIPS. COMPLIANT WITH LT ARM RESTRICTIONS FOR PACER. NO C/O PAIN. SLEEPING PILL GIVEN AT HS PER REQUEST. HOURLY ROUNDS CONTINUE. BED ALARM ON. CALL LITE IN REACH.
--- NOTE | 2020-02-23 06:02 | NUR ---
SLEPT MOST OF THE NIGHT. VOIDED ONCE AFTER GOING TO BED. TURNS SELF. NO C/O PAIN. PLEASANT. HOURLY ROUNDS CONTINUE. BED ALARM ON. CALL LITE IN REACH.
[2020-02-23 07:00] VITALS: BP 114/40
--- NOTE | 2020-02-23 13:09 | NUR ---
INITIAL ASSESSMENT: PATIENT ADMITTED TO THE ACUTE INPT REHAB UNIT ON 02/19/20 WITH A DIAGNOSIS OF ENCEPHALOPHY. PT ALERT AND ORIENTED. PT INFORMS THAT SHE RESIDES AT HOME WITH SPOUSE AND HE IS ABLE TO ASSIST HER AT HOME IF NEEDED. PT INFORMS THAT HER 4 CHILDREN ARE ALSO SUPPORTIVE AND ALL HELP WHEN NEEDED. PT OWN 0 DME. PT HAS HX OF HH WITH [facility]. PT HAS 0 HX OF SNF. CM ATTEMPTED TO CONTACT PT'S SON GÉNESIS TO DISCUSS DISCHARGE PLANNING. HOWEVER, HIS VOICEMAIL BOX IS FULL AND CM UNABLE TO LEAVE MESSAGE. PT ORIENTED TO THE ROLE OF CM, REHAB REHAB PROCESS, RESIDENTS RIGHTS INFO, AND TEAM CONFRENCE. CM WILL REMAIN AVAILABLE TO ASSIST AND FOLLOW NEEDED.
[2020-02-23] MEDS ORDERED: METFORMIN HCL500 M3 PO (13:57)
[2020-02-23 13:59] VITALS: BP 114/40
[2020-02-23 14:10] VITALS: BP 114/40
[2020-02-23] MEDS ORDERED: JANUMET 50-5001 EACH PO (14:52)
[2020-02-23 15:30] VITALS: BP 114/40
--- NOTE | 2020-02-23 16:12 | NUR ---
ASSUMED CARE AT 0730. ALERT ORIENTED PLEASANT COOPERATIVE. HX OF ENCEPHLOPATHY AND PACEMAKER L CHEST. STERI STRIPS IN PLACE C/D/I. TRANSFERS WITH CGA GAIT BELT AMBULATES TO BR TO VOID ABLE TO DO HYGEINE AND CLOTHING ADJUSTMENTS. DENIES PAIN BUT DOES WANT TO BE DISCHARGED HOME TODAY. TOOK MEDS WITHOUT DIFFICULTY. FEEDS SELF MEALS.
--- NOTE | 2020-02-23 16:35 | NUR ---
PT. REFUSED P.T. S.T. THIS A.M. BUT DID WORK WITH THEM THIS AFTERNOON. DR. CROCKETT ARRIVED AROUND 1 P.M. PT. FAMILY HERE AND IS READY TO ASSIST WITH PT. AT HOME AFTER D/C. D/C INSTRUCTIONS EXPLAINED TO PT. AND FAMILY VERBALIZED UNDERSTANDING ALLOWED TIME FOR QUESTIONS. DISCHARGED AT 1530 WITH BELONGINGS AND INSTRUCTIONS TO HOME PER PRIVATE CAR.
== END 2020-02-23 15:30 | disposition home health service (06) | DRG 91 ==
LOC: M.REH 10:24
PROVIDERS: Internal Medicine; ADMIT Physical Medicine & Rehabilitation; ATTEND Physical Medicine & Rehabilitation
DX: G93.1 Anoxic brain damage, not elsewhere classified (principal); N17.0 Acute kidney failure with tubular necrosis; I44.2 Atrioventricular block, complete; E46 Unspecified protein-calorie malnutrition; D64.9 Anemia, unspecified; E78.5 Hyperlipidemia, unspecified; I25.10 Atherosclerotic heart disease of native coronary artery without angina pectoris; K75.89 Other specified inflammatory liver diseases; E87.5 Hyperkalemia; E11.40 Type 2 diabetes mellitus with diabetic neuropathy, unspecified; E78.00 Pure hypercholesterolemia, unspecified; R53.81 Other malaise; R55 Syncope and collapse; Z95.0 Presence of cardiac pacemaker; I25.2 Old myocardial infarction; Z95.1 Presence of aortocoronary bypass graft; Z68.21 Body mass index [BMI] 21.0-21.9, adult; Z82.49 Family history of ischemic heart disease and other diseases of the circulatory system

== ENCOUNTER → 2020-07-12 | Outpatient (CLI) | payer MEDICARE, OTHER ==
[~2020-07-12] MED LIST changes: +CARVEDILOL12.5 MG PO; +JANUMET 50-5001 EACH PO; +METFORMIN HCL500 M3 PO; +PROTONIX40 M2 PO
--- NOTE | 2020-07-12 17:15 | CARDNUC ---
[place] [address] CARDIAC NUCLEAR IMAGING REPORT Name: DELFINO BROWN Room: [facility]#: [id number] Admission: 07/12/20 Attend Phys: Sudhir Rossi, Discharge: Date of : 37 Date of Service: 07/12/20 1714 Report #: [id number] THIS REPORT FOR: cc: Rodney Barr MD Mann, Kenneth R, MD Liston, Michael J. 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 Previous Cardiac Procedures: CABG, PPM, Myocardial infarction, PCI. Pretest Chest Pain Characteristics: No chest pain Exercise History: Sedentary Physical Disabilities: Generalized weakness, unsteady-shuffled gait. Meds Held (24 hrs): Carvedilol. Stress Test Details Stress Test: Pharmacologic stress testing performed using 0.4 mg of regadenoson per 5 mL given IV over 10 seconds. Reason for pharmacologic stress test: Generalized weakness, unsteady-shuffled gait.. HR Resting HR: 65 bpm Max Heart Rate (APMHR): 136 bpm Max HR Achieved: 90 bpm Target HR (85% APMHR): 115 [place] [address] CARDIAC NUCLEAR IMAGING REPORT Name: DELFINO BROWN Room: [facility]#: [id number] Admission: 07/12/20 Attend Phys: Sudhir Rossi, Discharge: Date of : 37 Date of Service: 07/12/20 1714 Report #: [id number] % of APMHR: 66 Recovery HR: 81 bpm BP Resting BP: 147/52 mmHg Max BP: 151/47 mmHg ECG Resting ECG: Sinus Rhythm, LBBB Stress ECG: Sinus Rhythm, LBBB ST Change: None Arrhythmia: None Recovery ECG: Sinus Rhythm, LBBB Recovery ST Change: None Recovery Arrhythmia: None Clinical Reason for Termination: Completed protocol Stress Symptoms: Dyspnea. Exercise duration: 00 min 00 sec Exercise capacity: 1.00 METs The patient tolerated Lexiscan infusion without significant cardiac symptoms. Nurse Comments An 85 year old female presented for a sitting Lexiscan r/t chest pain, dyspnea, s/p CABG,PCI, TN, PPM and 3rd deg. HB. Test well tolerated. Recovery unremarkable. Patient was stable and stated she felt good when escorted to Nuclear Medicine for imaging. Stress ECG Conclusion The baseline EKG shows sinus rhythm with left bundle branch block. EKGs obtained during and post Lexiscan infusion show sinus rhythm with persistent left bundle branch block. NM EXAM: Myocardial Perfusion REST/STRESS Imaging Protocol: Rest Tc-99m/Stress Tc-99m 1 day Resting Data Rest SPECT myocardial perfusion imaging was performed in supine position 30 minutes following the intravenous injection of 12.0 mCi of Tc-99m Sestamibi. Time of rest injection: 1255 Date: 07/12/2020 The images were gated to evaluate regional wall motion and calculate left ventricular ejection fraction. Administration Route: [place] [address] CARDIAC NUCLEAR IMAGING REPORT Name: DELFINO BROWN [facility] [id number] Admission: 07/12/20 Attend Phys: Sudhir Rossi, Discharge: Date of : 37 Date of Service: 07/12/20 1714 Report #: [id number] Administration Site: Left AC Pharmacologic Stress Pharmacologic stress test was performed by injecting Regadenoson 0.4 mg IV push followed by the intravenous injection of 34.6 mCi of Tc-99m Sestamibi. Time of stress injection: 1435 Date: 07/12/2020 Administration Route: IV Administration Site: Left AC Gated Stress SPECT was performed 40 minutes after stress injection. The images were gated to evaluate regional wall motion and calculate left ventricular ejection fraction. Prone imaging was performed. Study Quality Study: Fair Artifact: No artifact Study Data At rest, the left ventricular ejection fraction was 56%.. Post stress, the left ventricular ejection was 53%.. TID = 1.10. Perfusion Perfusion images show a small in size severe intensity fixed defect involving the apex and very apical portion of the anterior wall. No reversible defects are identified. Wall Motion Gated study show preserved left ventricular systolic function with hypokinesis at the apex and septal wall motion abnormality consistent with underlying bundle branch block. Nuclear Conclusion ECG Findings: non-diagnostic Clinical Findings: negative for ischemia Nuclear Findings: negative for ischemia Exercise Capacity: not assessed Left Ventricular Function: Preserved Perfusion study show evidence of prior apical infarct. Global LV systolic function is preserved with wall motion abnormalities as outlined above. This is not a high risk study. <Conclusion> The baseline EKG shows sinus rhythm with [place] [address] CARDIAC NUCLEAR IMAGING REPORT Name: DELFINO BROWN [id number] Admission: 07/12/20 Attend Phys: Sudhir Rossi, Discharge: Date of : 37 Date of Service: 07/12/20 1714 Report #: [id number] EKGs obtained during and post Lexiscan infusion show sinus rhythm with persistent left bundle branch block. <ELECTRONICALLY SIGNED> By: Sudhir Rossi MD, FACChago 07/12/20 1714 13 13 Sudhir Rossi MD, FACChago /INF
== END ==
LOC: M.NUC 06-29 17:09
PROVIDERS: ATTEND Internal Medicine Cardiovascular Disease
DX: I25.10 Atherosclerotic heart disease of native coronary artery without angina pectoris (principal); R55 Syncope and collapse; R07.9 Chest pain, unspecified; R06.00 Dyspnea, unspecified

== ENCOUNTER 2021-01-21 22:10 | Inpatient (IN) | payer MEDICARE, OTHER ==
[~2021-01-21] VITALS: Ht 160 cm; Wt 52.2 kg
[2021-01-21 22:16] VITALS: BP 154/70
[2021-01-21] MEDS ORDERED: COLESTIPOL HCL1 G1 PO (22:28)
[2021-01-21] MEDS ORDERED: PLAVIX 75 MG TA75 MG PO (22:28)
[2021-01-21] MEDS ORDERED: NIFEDIPINE ER30 M1 PO (22:29)
[2021-01-21] MEDS ORDERED: ZESTRIL10 MG PO (22:29)
[2021-01-21] MEDS ORDERED: IMDUR 30 MG TAB30 M1 PO (22:29)
[2021-01-21] MEDS ORDERED: FAMOTIDINE 40 M40 M1 PO (22:29)
[2021-01-21] MEDS ORDERED: NITROSTAT0.4 M1 SUBLING (22:30)
[2021-01-21 23:29] LABS: ABSOLUTE EOSINOPHILS 0.1 thou/uL (0.0-0.7); ABSOLUTE LYMPHOCYTES 1.2 thou/uL (0.8-5.3); ABSOLUTE MONOCYTES 0.6 thou/uL (0.0-1.2); ABSOLUTE NEUTROPHILS 3.8 thou/uL (1.6-8.1); BASOPHILS 0.8 %; EOSINOPHILS 2.2 %; HEMATOCRIT 36.6 % (37.0-47.0); HEMOGLOBIN 12.4 gm/dL (12.0-15.0); LYMPHOCYTES 21.3 %; MCHC 33.9 g/dL (28.0-37.0); MCV 91.3 fL (80.0-100.0); MONOCYTES 10.1 %; MPV 7.9 fl. (7.2-11.1); NUCLEATED RBCS 0 /100WBC; PLATELET COUNT* 162 thou/uL (150-400); POLYS 65.6 %; RDW-CV 13.1 % (10.5-14.5); WBC 5.8 thou/uL (4.0-11.0)
[2021-01-21 23:43] LABS: CALCIUM 8.1 mg/dL (8.5-10.1); CREATININE 2.1 mg/dL (0.6-1.3); POTASSIUM 3.8 mmol/L (3.5-5.1)
[2021-01-21 23:53] LABS: ALBUMIN 3.7 g/dL (3.4-5.0); TOTAL BILIRUBIN 0.3 mg/dL (<0.1-1.0); TOTAL PROTEIN 7.3 g/dL (6.4-8.2)
[2021-01-22] VITALS (7 sets, daily range): BP systolic 99–155; BP diastolic 40–59
--- NOTE | 2021-01-22 04:00 | NUR ---
RECEIVED REPORT FROM ER, PT TO ROOM PER CART. HEPARIN INFUSING AT 626 UNITS PER HR. PT DENIES CP OR SOA. GAIT STEADY TO AND FROM BR WITH STEADY GAIT. TELEMETRY APPLIED SHOWING SR WITH 1ST AVB AND BBB. PT ALSO HAS PACEMAKER. SEE ADMISSION ASSESSMENT AND HX. WILL CONT TO MONITOR AND ASSIST NEEDED.
--- NOTE | 2021-01-22 11:36 | EKG ---
[place] [address] ELECTROCARDIOGRAM REPORT Name: DELFINO BROWN Room: [address] ADM IN .R.#: [id number] Admission: 01/22/21 Attend Phys: Leydi Easley, Discharge: Date of : 37 Date of Service: 01/22/21 0129 Report #: [id number] THIS REPORT FOR: //name// 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: MS : 1935 Requested By: Mery Vigil Order Number: [id number] MD: Wilfrid Sharpe Measurements Intervals [place] Rate: 74 P: 76 DE: 195 QRS: -65 QRSD: 137 T: 143 QT: 464 QTc: 515 Interpretive Statements Sinus rhythm Left bundle branch block Compared to ECG 01/21/2021 22:20:20 Left bundle-branch block now present Atrial-paced complex(es) or rhythm no longer present Ventricular-paced complex(es) or rhythm no longer present Electronically Signed On 01-22-2021 11:36:23 CDT by Wilfrid Sharpe [email or web address] <ELECTRONICALLY SIGNED> By: Colette Sharpe MD, [facility] 01/22/21 1136 8 8 Colette Sharpe MD, [facility] /EPI
--- NOTE | 2021-01-22 11:36 | EKG ---
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 : 1935 Requested By: Mery Vigil Order Number: [id number] MD: Wilfrid Sharpe Measurements Intervals [place] Rate: 78 P: -10 NV: 26 QRS: 10 QRSD: 167 T: QT: 426 QTc: 486 Interpretive Statements Atrial-paced complexes No further analysis attempted due to paced rhythm Compared to ECG 02/18/2020 08:55:40 Sinus rhythm no longer present Left ventricular hypertrophy no longer present LBBB Electronically Signed On 01-22-2021 11:36:01 CDT by Wilfrid Sharpe [email or web address] <ELECTRONICALLY SIGNED> By: Colette Sharpe MD, [facility] 01/22/21 1136 19 19 Colette Sharpe MD, [facility] /EPI
[2021-01-23 04:00] VITALS: BP 109/50
--- NOTE | 2021-01-23 07:20 | NUR ---
CHANGE OF SHIFT BEDSIDE REPORT GIVEN PATIENT SEEN AT BEDSIDE, IN BED ASLEEP ASSUMED PATIENT CARE
[2021-01-23 08:00] VITALS: BP 122/41
--- NOTE | 2021-01-23 10:41 | CON ---
[address] [address] CONSULTATION Name: DELFINO BROWN Room: [address] IN M.R.#: [id number] Admission: 01/22/21 Attend Phys: Leydi Easley MD Discharge: Date of : 37 Report #: [id number] THIS REPORT FOR: cc: Rodney Barr MD Mann, Kenneth R, MD Biggs, F. Douglas MD [facility] ~ DATE OF CONSULTATION: 01/22/2021 CARDIOLOGY CONSULTATION HISTORY OF PRESENT ILLNESS: I was asked by Dr. Leydi Easley to see this 85-year-old white female in Cardiology consultation for evaluation and treatment of a possible non-ST segment elevation NE. This lady has a history of coronary artery disease as well as at least 2 coronary stents. She has had a pacemaker in the past, that apparently was for complete heart block. She has left bundle branch block, hypercholesterolemia, essential hypertension and non-insulin dependent diabetes mellitus. She has had anginal chest pain for a couple of days and finally yesterday morning developed more protracted episodes. She had 2 episodes. She apparently took three nitroglycerins for those 2 episodes. The pains did respond to nitroglycerin, however. She also was having her chest pain particularly with exertion initially. She said that she became quite weak overall. She was pain free before she got to the hospital, however. She also has some shortness of breath. Note, she has had bypass surgery in the past x 2, I believe. HOME MEDICATIONS: Include aspirin 81 mg daily, atorvastatin 40 mg daily, carvedilol 12.5 mg b.i.d., Plavix 75 mg daily, colestipol 1 gram daily, Pepcid 40 mg daily, gabapentin 100 mg daily at bedtime, isosorbide mononitrate 30 mg daily, lisinopril 10 mg daily, nifedipine 30 mg daily, p.r.n. nitroglycerin, sertraline 50 mg daily and Janumet 50/500 one b.i.d. This lady has been pain free since before she got to the ER. LABORATORY DATA: Her EKG shows sinus rhythm and possibly some atrial paced beats with left bundle branch block. I am not sure I can see any pacemaker spikes on the ventricular beats. She apparently did not get a chest x-ray. Her troponins were initially 1.16 and subsequently 1.01 and then 0.68. NT-proBNP was 1595. She is quite comfortable right now. She is not having any chest pain or shortness of breath. She is lying flat comfortably. PAST MEDICAL HISTORY: As described above. ALLERGIES: [place] [address] CONSULTATION Name: DELFINO BROWN Room: [address] IN ..#: [id number] Admission: 01/22/21 Attend Phys: Leydi Easley MD Discharge: Date of : 37 Report #: [id number] SOCIAL HISTORY: She does not smoke, drink or use illegal drugs. REVIEW OF SYSTEMS: Unremarkable except as per the above history and physical. Systems reviewed included 14 different categories. Please see our review of systems performed. There was some 45 different complaints in 14 different system categories. FAMILY HISTORY: Unremarkable. I have found a chest x-ray; however, that shows no acute cardiopulmonary disease. PHYSICAL EXAMINATION: VITAL SIGNS: She presents as a well-developed, well-nourished -Faroese woman in no acute distress. Her pulse is 74 and regular, blood pressure was 100/60, respirations were 16 and regular. She is clinically afebrile. HEENT: Her head is atraumatic. Eyes are clear. NECK: Supple. There is no jugular venous distention or hepatojugular reflux. Thyroid is not enlarged. There is no adenopathy. SKIN: Warm and dry. Mucous membranes are moist. LUNGS: Clear to auscultation and percussion. HEART: Revealed normal first and second heart sounds. There is soft S4. There is no S3. There are no murmurs, rubs, thrills, heaves or gallops. The rhythm was regular and the rate was approximately 80. PMI is not displaced. ABDOMEN: Soft, flat, nontender, no palpable masses, no organomegaly. EXTREMITIES: Reveal no cyanosis, clubbing or edema. NEUROLOGIC: The patient mentated normally, talked normally and moved all extremities normally. IMPRESSION: 1. Small non-ST segment elevation myocardial infarction with angina and possibly unstable angina preceding it. Note, she has been pain free now for about 12 hours. 2. Coronary artery disease. 3. Status post coronary stents. 4. Status post pacemaker. 5. Left bundle branch block. 6. Essential hypertension. 7. Hypercholesterolemia. 8. Non-insulin dependent diabetes mellitus. 9. Status post coronary artery bypass graft surgery x 2. RECOMMENDATION: She has been placed on heparin as well as beta yifan, CANDIDA inhibitor and a calcium channel yifan. She is also on Plavix and aspirin. She is stable. We will plan to do cardiac catheterization on her on Sunday and continue on this protocol. If she develops any more chest pain, I will try [address] [place] [address] CONSULTATION Name: DELFINO BROWN Room: [address] IN [facility]#: [id number] Admission: 01/22/21 Attend Phys: Leydi Easley MD Discharge: Date of : 37 Report #: [id number] [place]gr[place]at. Thank you very much for asking me to see the patient. If you have any questions, please feel free to contact me. <ELECTRONICALLY SIGNED> By: Colette Sharpe MD, FACC 01/23/21 1041 [id number]. Wilfrid Sharpe MD, FACC /nt
[2021-01-23 12:00] VITALS: BP 148/54
[2021-01-23 16:00] VITALS: BP 131/49
[2021-01-23 20:00] VITALS: BP 141/49
--- NOTE | 2021-01-23 20:00 | NUR ---
RECEIVED REPORT AND ASSUMED CARE OF PT, ASSESSMENT COMPLETED. PT VERY PLEASANT. DISCUSSED CARDIAC CATH FOR AM. NO QUESTIONS ASKED. TELEMETRY ON SHOWING SR. WILL CONT TO MONITOR AND ASSIST NEEDED.
[2021-01-24] VITALS: BP 150/45
[2021-01-24 04:27] VITALS: BP 141/51
[2021-01-24 04:44] LABS: ABSOLUTE EOSINOPHILS 0.2 thou/uL (0.0-0.7); ABSOLUTE LYMPHOCYTES 1.4 thou/uL (0.8-5.3); ABSOLUTE MONOCYTES 0.4 thou/uL (0.0-1.2); ABSOLUTE NEUTROPHILS 3.2 thou/uL (1.6-8.1); BASOPHILS 0.5 %; EOSINOPHILS 4.5 %; HEMATOCRIT 30.5 % (37.0-47.0); HEMOGLOBIN 10.6 gm/dL (12.0-15.0); LYMPHOCYTES 26.7 %; MCH 31.7 pg (26.0-34.0); MCHC 34.8 g/dL (28.0-37.0); MCV 91.1 fL (80.0-100.0); MONOCYTES 7.5 %; MPV 8.2 fl. (7.2-11.1); NUCLEATED RBCS 0 /100WBC; PLATELET COUNT* 139 thou/uL (150-400); POLYS 60.8 %; RBC 3.35 mil/uL (4.20-5.00); RDW-CV 12.6 % (10.5-14.5); WBC 5.3 thou/uL (4.0-11.0)
[2021-01-24 04:48] LABS: ANION GAP 11 mmol/L (7-16); BUN 9 mg/dL (7-18); CALCIUM 7.8 mg/dL (8.5-10.1); CHLORIDE 110 mmol/L (98-107); CHOLESTEROL 88 mg/dL (<200); CO2 23 mmol/L (21-32); CREATININE 1.5 mg/dL (0.6-1.3); GLUCOSE 126 mg/dL (70-99); HDL CHOLESTEROL 47 mg/dL (>40); LDL CHOLESTEROL 27 mg/dL (<100); MAGNESIUM 1.6 mg/dL (1.8-2.4); POTASSIUM 3.1 mmol/L (3.5-5.1); SERUM ASSESSMENT Clear; SODIUM 144 mmol/L (136-145); TC:HDL 1.9 Ratio (Not establshd); TRIGLYCERIDE 70 mg/dL (<150); VLDL 14 mg/dL (<40)
--- NOTE | 2021-01-24 06:30 | NUR ---
SLEPT WELL TONIGHT. NPO AFTER MN FOR CARDIAC CATH TODAY. DENIES CP OR SOA. NO CHANGE IN ASSESSMENT. TELEMETRY CONT TO SHOW A PACED. HS GOALS OF REST AND SAFETY ACHIEVED. HOURLY ROUNDING OBSERVED.
[2021-01-24 07:37] LABS: APTT 47.6 Seconds (25.0-31.3); INR 1.1; PROTIME 11.2 Seconds (9.20-11.50)
[2021-01-24 09:15] VITALS: BP 143/50
[2021-01-24 12:00] VITALS: BP 161/53
--- NOTE | 2021-01-24 15:48 | NUR ---
Pt is A&O. Resides at home with . Independent and active. No DME. No DME. No hx of HH or SNF. Goal is home at dc, no needs anticipated. Pt to have cath today, anticipate dc later today or tomorrow.
[2021-01-24 15:50] VITALS: BP 168/54
[2021-01-24 18:35] LABS: URINE BILIRUBIN NEGATIVE (Negative); URINE BLOOD 3+ (Negative); URINE CLARITY CLEAR; URINE COLOR YELLOW; URINE GLUCOSE-RANDOM NEGATIVE (Negative); URINE KETONES NEGATIVE (Negative); URINE LEUKOCYTES-REFLEX NEGATIVE (Negative); URINE NITRITE-REFLEX NEGATIVE (Negative); URINE PROTEIN 1+ (Negative); URINE UROBILINOGEN 0.2 E.U./dl (0.2-1.0)
[2021-01-24 18:43] LABS: HYALINE CASTS 0-3 Few /LPF (None Seen); MUCUS None Seen strn/LPF (None Seen); SQUAMOUS 4-10 Moderate /LPF (0-3); URINE RBC 0-2 Rare /HPF (0-2)
[2021-01-24 18:44] LABS: BACTERIA-REFLEX 1-9 Few /HPF (None Seen)
[2021-01-24 18:45] LABS: CRYSTALS None Seen /LPF (None Seen); URINE WBC-REFLEX 0-5 Rare /HPF (0-5)
[2021-01-24 20:00] VITALS: BP 158/53
--- NOTE | 2021-01-24 20:16 | NUR ---
ASSUMED PT CARE AT 0730. PT IS A&OX4, PLEASANT AND COOPERATIVE. MORNING MEDS HELS ALL BUT ASA PER DR. HERNANDEZ. ASSESSMENT COMPLETED AND PT TO GO FOR CARDIAC CATH TODAY. POST CATH VS 161/58 73P 18R 96% 02 T97. R&L GROIN SITES ARE DRY, WITHOUT DRAINAGE. PT TO CONTINUE BEDREST UNTIL 1930 AND THEN ABLE TO GET UP TO BEDSIDE COMMODE. ALL MEDICATIONS EXCEPT NIFEDIPINE AND LISINIPRIL HELD THIS AM, ADMINISTERED THIS VADIM PER DR. DOUGLAS. PT DENIES ANY DISCOMFORT. SAFETY MEASURES IN PLACE AND AT BEDSIDE.
[2021-01-25 00:14] VITALS: BP 174/61
[2021-01-25 04:39] VITALS: BP 180/55
--- NOTE | 2021-01-25 05:11 | NUR ---
SLEPT WELL TONIGHT. JASON GROINS REMAINS WITHOUT HEMATOMA OR DRAINAGE. DRSGS DRY AND INTACT. DENIES CHEST PAIN. UP TO BSC INDEPENDENTLY. TELEMETRY SHOWING SR WITH BBB. UNEVENTFUL NIGHT. HS GOALS OF REST AND SAFETY ACHIEVED.
[2021-01-25 08:50] VITALS: BP 152/60
[2021-01-25 09:42] LABS: CALCIUM 8.3 mg/dL (8.5-10.1); CREATININE 1.2 mg/dL (0.6-1.3); POTASSIUM 4.2 mmol/L (3.5-5.1)
[2021-01-25 10:24] VITALS: BP 152/60
--- NOTE | 2021-01-25 10:46 | CARD ---
[address] [address] CARDIAC CATH REPORT Name: DELFINO BROWN Room: [address] IN ..#: [id number] Admission: 01/22/21 Attend Phys: Leydi Easley MD Discharge: Date of : 36 Report #: [id number] THIS REPORT FOR: cc: Rodney Barr MD Mann, Kenneth R, MD Blick, David R. MD [facility] ~ APPROVED REPORT Study performed: 01/24/2021 13:56:37 Patient Details Patient Status: In-Patient Room #: The patient is a 85 year-old female Event Personnel Buck Larson Integration Lead, Melly Mcadams RN Professor Of Vegetable Science, Lesly Lang RN Monitor, Mariela Avalos RTR Scrub Procedures Performed cardiac cath Indication Chest pain Risk Factors Coronary Artery Disease Previous Procedures/Diagnoses Previous CABGPrevious PCI Procedure Narrative The patient was brought electively to the Cardiac Catheterization Laboratory and was prepped and draped in a sterile manner. The right femoral was infiltrated with 1% Lidocaine subcutaneous anesthesia. IV conscious sedation was used throughout procedure with appropriate monitoring and was performed in the presence of a registered nurse who was an independent trained observer other than the physician performing the procedure. A 6 sheath was inserted into the right femoral artery. Coronary angiography was performed using coronary diagnostic catheters. There was no hematoma. Attempted procedure from the right femoral artery. Able to place a 6 telugu sheath percutaneously, but unable to advance a Wholey wire through the right external iliac which appearred chronically occluded. Attempted to [address] [address] CARDIAC CATH REPORT Name: DELFINO BROWN Room: [address] IN .R.#: [id number] Admission: 01/22/21 Attend Phys: Leydi Easley MD Discharge: Date of : 36 Report #: [id number] proceed from the left femoral artery. Arterial blood was obtained with the percutaneious needle, but unable to advance a wire. Arteriogram through the needle appearred to show a dissection. Procedure was abandoned. Sheath and needle were withdrawn, and hemostasis achieved with direct pressure. In addition, the patient became confused and combative during the procedure and required Narcan and Romazicon for reversal of Fentanyl and Versed. Intraoperative Conscious Sedation Fentanyl 50 mcg Dose: 34 mGy Contrast Type and Amount: No Contrast Given 0 ml Hemodynamics The aortic pressure is 143/47 mmHg with a mean of 91 mmHg. Conclusion Attempted procedure from the right femoral artery. Able to place a 6 telugu sheath percutaneously, but unable to advance a Wholey wire through the right external iliac which appearred chronically occluded. Attempted to proceed from the left femoral artery. Arterial blood was obtained with the percutaneious needle, but unable to advance a wire. Arteriogram through the needle appearred to show a dissection. Procedure was abandoned. Sheath and needle were withdrawn, and hemostasis achieved with direct pressure. In addition, the patient became confused and combative during the procedure and required Narcan and Romazicon for reversal of Fentanyl and Versed. 1. 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 2. If cardiac catheterization is felt to be necessary, consider procedure from the radial artery. Recommendations Aggressive Medical Therapy <ELECTRONICALLY SIGNED> By: Buck Larson MD, [facility] 01/25/21 1045 [id number] [id number] Larson MD, [facility] /INF
[2021-01-25 12:00] VITALS: BP 132/87
--- NOTE | 2021-01-25 14:59 | NUR ---
Pt scheduled to dc post CT angio today, cardiology to discuss dc with Pt. No needs.
[2021-01-25 15:15] VITALS: BP 132/87
--- NOTE | 2021-01-25 16:33 | NUR ---
ASSUME PT CARE AT 0730. PT IS A&OX4, PLEASANT AND COOPERATIVE. ASSESSMENT COMPLETD. VSS. MEDICATIONS ADMINISTERED ORDERED. PT UP TO BSC WITH STAND BY ASSIST. SAFETY MEASURES IN PLACE. CATH SITES ON R AND L AARE DRY AND INTACT. NEW ORDERS TO DISCHARGE PT TO HOME. PT VERBALIZED UNDERSTANDING OF ORDERS AND TO HOLD [facility] UNTIL SUNDAY 8-19. SPOUSE HERE AT 1626 TO TRANSPORT PT TO HOME VIA CAR. HEART MONITOR REMOVED AND IV DC'D. ALL BELONGINGS WITH PT.
== END 2021-01-25 16:26 | disposition home or self-care (01) | DRG 280 ==
LOC: M.ERS 22:10 → M.2W 01-22 00:11 → M.TBA-ER 01-22 00:11 → M.2W 01-22 04:12
PROVIDERS: Emergency Medicine; Internal Medicine; Internal Medicine Cardiovascular Disease; ADMIT Internal Medicine; ATTEND Internal Medicine
PROC: 02JA3ZZ Inspection of Heart, Percutaneous Approach (ICD-10-PCS; principal; 2021-01-24)
DX: I21.4 Non-ST elevation (NSTEMI) myocardial infarction (principal); N17.0 Acute kidney failure with tubular necrosis; N18.4 Chronic kidney disease, stage 4 (severe); I25.10 Atherosclerotic heart disease of native coronary artery without angina pectoris; E78.5 Hyperlipidemia, unspecified; I12.9 Hypertensive chronic kidney disease with stage 1 through stage 4 chronic kidney disease, or unspecified chronic kidney disease; E11.22 Type 2 diabetes mellitus with diabetic chronic kidney disease; E83.42 Hypomagnesemia; R26.81 Unsteadiness on feet; E87.6 Hypokalemia; E78.00 Pure hypercholesterolemia, unspecified; I44.7 Left bundle-branch block, unspecified; Z20.822 Contact with and (suspected) exposure to COVID-19; Z95.1 Presence of aortocoronary bypass graft; Z79.82 Long term (current) use of aspirin; Z79.84 Long term (current) use of oral hypoglycemic drugs; Z79.899 Other long term (current) drug therapy; Z79.01 Long term (current) use of anticoagulants; Z95.0 Presence of cardiac pacemaker; Z87.891 Personal history of nicotine dependence; Z72.89 Other problems related to lifestyle